=== PATIENT | female | born 1940 | race Caucasian/White ===

== ENCOUNTER 2019-11-19 15:16 | Inpatient (IN) | payer MEDICARE, BC, SELFPAY ==
[2019-11-19] VITALS (42 sets, daily range): BP systolic 125–182; BP diastolic 63–108; PULSE 79–90; RESP 11–31; TEMP 36.6–36.7; O2SAT 90–100; BMI 34.9
--- NOTE | 2019-11-19 15:25 | CT_ITS ---
WS: [id number] CT HEAD NONCONTRAST HISTORY: POSS CVA. LEFT SIDED FACIAL DROOP. TECHNIQUE: Contiguous axial imaging performed through the brain in 2.5 mm imaging. Bone and soft tiss ue windows. Sagittal and coronal reformats reviewed. All CT scans at [facility] use at le ast one of these dose optimization techniques: automated exposure control; mA and/or kV adjustment pe r patient size (includes targeted exams where dose is matched to clinical indication); or iterative r econstruction. DLP: 835.77 mGy-cm. COMPARISON: None available. No acute intracranial hemorrhage, midline shift or mass effect. Mild atrophy and numerous small infarcts and prior microvascular ischemia. LEFT centrum semiovale keesha or lacunar infarct. Areas of decreased attenuation adjacent to the thalami and within the basal gangl ia. No focal area of sulcal effacement. Ventricles: Normal size with no hydrocephalus. Mild atherosclerotic plaque intracranial carotid arteries. Paranasal sinuses: As visualized are clear. Mastoid air cells: Well pneumatized. Calvarium and scalp: Skull is intact with no soft tissue edema or swelling. Notified Michael Hooper DO at 11/19/2019 3:[address]/CT head wo con* [id number] IMPRESSION: 1. No acute intracranial hemorrhage or edema. 2. Cerebral atrophy with prior lacunar infarcts in chronic ischemic changes.
--- NOTE | 2019-11-19 15:25 | ECG_ITS ---
[facility] ED Test Date: 2019-11-19 Pat Name: Arianna Rodriguez Department: Room: Gender: Female Help Desk Intern: : 1940 Requested By: Michael Murillo Order Number: [id number] Lorena MD: Roxana Boone M.D. 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 [email or web address] campusParsley Energy/store/[id number] f
--- NOTE | 2019-11-19 15:38 | CTR_ITS ---
PROCEDURE INFORMATION: Exam: CT Angiography Head With Contrast Exam date and time: 11/19/2019 4:13 PM Age: 79 years old Clinical indication: Other: Right side facial droop and arm weakness; Additional info: Acute CVA TECHNIQUE: Imaging protocol: Computed tomography angiography of the head with intravenous contrast. 3D rendering: MIP and/or 3D reconstructed images were created by the technologist. Radiation optimization: All CT scans at this facility use at least one of these dose optimization techniques: automated exposure control; mA and/or kV adjustment per patient size (includes targeted exams where dose is matched to clinical indication); or iterative reconstruction. Contrast material: VISI 320; Contrast volume: 95 ml; Contrast route: INTRAVENOUS (IV); COMPARISON: CT head wo con* [id number] 11/19/2019 3:11 PM RADIATION DOSE METRICS: Total DLP (mGy-cm): 2483.88 FINDINGS: Anterior cerebral arteries: No occlusion or significant stenosis. No aneurysm. Right internal carotid artery: Intracranial segment is patent with no significant stenosis or occlusion. No aneurysm. Right middle cerebral artery: No occlusion or significant stenosis. No aneurysm. Right posterior cerebral artery: No occlusion or significant stenosis. No aneurysm. Right vertebral artery: No occlusion or significant stenosis. No aneurysm. Left internal carotid artery: The left ICA is occluded at the skull base. There is some retrograde contrast opacification of the left intracranial ICA. Left middle cerebral artery: The left middle cerebral artery is filling via collateral flow. Left posterior cerebral artery: No occlusion or significant stenosis. No aneurysm. Left vertebral artery: No occlusion or significant stenosis. No aneurysm. Basilar artery: No occlusion or significant stenosis. No aneurysm. Other vasculature: There is a small 2.8 mm anterior communicating artery aneurysm which is best seen on series 2, image 443. IMPRESSION: 1. 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 2. Left MCA fills via collateral flow. 3. 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 PROCEDURE INFORMATION: Exam: CT Angiography Neck With Contrast Exam date and time: 11/19/2019 4:13 PM Age: 79 years old Clinical indication: Other: Right side facial droop and arm weakness; Additional info: Acute CVA TECHNIQUE: Imaging protocol: Computed tomography angiography of the neck with intravenous contrast. 3D rendering: MIP and/or 3D reconstructed images were created by the technologist. Radiation optimization: All CT scans at this facility use at least one of these dose optimization techniques: automated exposure control; mA and/or kV adjustment per patient size (includes targeted exams where dose is matched to clinical indication); or iterative reconstruction. Contrast material: VISI 320; Contrast volume: 95 ml; Contrast route: INTRAVENOUS (IV); COMPARISON: CT head wo con* [id number] 11/19/2019 3:11 PM RADIATION DOSE METRICS: Total DLP (mGy-cm): 2483.88 FINDINGS: Right common carotid artery: No stenosis. No dissection or occlusion. Right internal carotid artery: No stenosis of the extracranial segment. No dissection or occlusion. Right external carotid artery: No occlusion or stenosis of the origin. Right vertebral artery: No stenosis. No dissection or occlusion. Left common carotid artery: No stenosis. No dissection or occlusion. Left internal carotid artery: There is proximal left ICA occlusion due to apparent dissection. Left external carotid artery: No occlusion or stenosis of the origin. Left vertebral artery: No stenosis. No dissection or occlusion. CT/CT angio headneck* [id number] IMPRESSION: Left ICA occlusion. REFERENCES: NASCET CRITERIA. The degree of internal carotid artery stenosis is based on NASCET criteria. Normal is no stenosis. Mild is less than 50% stenosis. Moderate is 50-69% stenosis. Severe is 70% to 99% stenosis. Total occlusion is no detectable patent lumen. Radiation Dose CTDIVOL = (mGy): DLP = 2483.88~2483.88 (mGy-cm)
--- NOTE | 2019-11-19 15:39 | ED_ITS ---
HPI - Neuro Symptoms/Deficit General: Chief Complaint: Neuro Symptoms/Deficit Stated Complaint: R SIDE WEAKNESS Time Seen by Provider: 11/19/19 15:24 History of Present Illness: HPI Narrative: 79-year-old female presents emergency room with hemiparesis and a aphasia. Hemiparesis affects the right side. She lives at home with her . Is difficult to get a last known well time initially discussing with him he related to us that she woke up with the symptoms on further discussion he indicated that she had had symptoms a couple of days prior. And then the following day seemed well. Then she woke up with symptoms today. Discussing with him second time he related that she seemed fine initially and she woke up and then sometime after waking up began to have symptoms. States she initially got up and around 6 or 630 seemed fine and then later in the day he noted that she was not speaking well and could not move her right side properly. Stroke alert was called Dr. Soto was consulted see her note as well. Onset (ago): unknown (See above in HPI) Timing confirmed by: spouse Location: speech, dysarthria, right arm and right leg Severity: severe Quality: weak and numb Relieving factors: none Exacerbating factors: none Context: gradual onset On Anticoagulants: No Associated symptoms: Reports no associated symptoms Treatments Prior to Arrival: none Review of Systems General: Reports: ROS unobtainable due to medical condition PFSH ED PFSH: Medical History Chronic back pain Depression Diastolic CHF DM2 (diabetes mellitus, type 2) Hypertension Obesity Osteoarthritis (arthritis due to wear and tear of joints) Surgical History History of cataract surgery History of cholecystectomy History of tonsillectomy Family History Other Diabetes Social History Smoking and tobacco status: former smoker Alcohol intake: never NIH stroke score NIHSS: Level Of Consciousness - 1a: 2 Level Of Consciousness Questions - 1b: One Correct Level Of Consciousness Commands - 1c: One Correct Best Gaze - 2: Normal Visual Perry - 3: No Visual Loss Facial Palsy - 4: Partial Paralysis Motor Arm Right - 5: Effort Against Welsh Motor Arm Left - 5: No Drift Motor Leg Right - 6: No Drift Motor Leg Left - 6: Drift Limb Ataxia - 7: Present In Two Limbs Sensory - 8: Mild To Moderate Loss Best Language - 9: Mild/Moderate Aphasia Dysarthia - 10: Mild/Moderate Dysarthia Extinction And Inattention - 11: 1 Score: Total Score: 15 Physical Exam Const: COMMON NORMALS: no acute distress GENERAL APPEARANCE: cooperative and comfortable ORIENTATION/CONSCIOUSNESS: Yes awake HENMT: COMMON NORMALS: normocephalic, atraumatic, hearing grossly normal bilaterally, moist oral mucous membranes and oropharynx normal HEAD & SCALP: normocephalic and atraumatic Eye: COMMON NORMALS: Equal, round and reactive pupils present, EOMs intact bilaterally, conjunctivae normal and no scleral icterus CONJUNCTIVA: Yes conjunctivae normal PUPIL: Yes Equal, round and reactive pupils present Neck/C-Spine: COMMON NORMALS: full ROM, no lymphadenopathy, supple and no JVD Lymph: LYMPHATIC: no lymphadenopathy noted and no lymphedema noted Resp: COMMON NORMALS: normal respiratory effort, No retractions, No use of accessory muscles and clear to auscultation bilaterally AUSCULTATION: clear to auscultation bilaterally Cardio: COMMON NORMALS: no JVD, regular rate, regular rhythm and No murmurs present (Cardio) RATE: regular rate RHYTHM: regular rhythm GI: COMMON NORMALS: Soft to palpation and No hepatosplenomegaly present AUSCULTATION: Yes normoactive bowel sounds PALPATION: Yes Soft to palpation, No Tenderness to palpation present (GI), No Guarding due to palpation present (GI) and Yes No hepatosplenomegaly present Extremity: COMMON NORMALS: normal to inspection, capillary refill normal, no clubbing, cyanosis or edema, no calf tenderness and no pedal edema Neuro: OTHER: Right-sided weakness of the arm and leg leg seems to be more affected than the arm. Is also left-sided slight facial droop significant dysarthria and some mild aphasia. See NIH scoring. Skin: COMMON NORMALS: no rashes or lesions noted GENERAL SKIN EXAM: no rashes or lesions noted Course Vital Signs: Vital signs: Vital Signs Temperature 98.8 F 11/22/19 13:08 Pulse Rate 78 11/22/19 13:08 Respiratory Rate 18 11/22/19 13:08 Blood Pressure 141/83 11/22/19 13:08 Pulse Oximetry 95 11/22/19 13:08 MDM - Neuro Symptoms/Deficit MDM Narrative: Medical decision making narrative: Initially we thought the patient probably was outside the window of any kind of treatment. After discussion with the and further pressing him on a timeframe does appear she might of been a candidate for embolectomy but was outside the window of any kind of thrombolytic therapy. However CTA of the head and neck showed what appeared to be a carotid dissection she did have good collateral circulation there is loss of henson-white matter but no edema. After consultation with Dr. Soto when the result of the CTA of the head and neck was done decided to admit her here as she was not a candidate for any kind of embolectomy discussed Dr. Guzman. Patient be admitted here under stroke protocols. Lab Data: Labs: Lab Results 11/19/19 11/19/19 11/19/19 Range/Units 13:54 15:34 15:34 WBC 11.3 H (4.0-10.0) 10^3/ uL RBC 5.05 (4.1-5.3) 10^6/u L Hgb 12.9 (11.5-15.3) g/dL Hct 43.5 (37.0-47.0) % MCV 86.1 (81-99) fL MCH 25.5 L (28.0-34.0) pg MCHC 29.7 L (30.0-36.0) g/dL RDW 15.5 H (12.1-15.1) % Plt Count 320 (130-400) 10^3/c mm MPV 10.3 (7.4-10.4) fL Neut % (Auto) 69.1 % Lymph % (Auto) 18.9 % Richardson % (Auto) 9.9 % Eos % (Auto) 1.1 % Baso % (Auto) 0.6 % Neut # (Auto) 7.80 H (1.8-7.7) 10^3/u L Lymph # (Auto) 2.1 (0.8-4.8) 10^3/u L Richardson # (Auto) 1.1 H (0.2-0.9) 10^3/u L Eos # (Auto) 0.1 (0.0-0.8) 10^3/u L Baso # (Auto) 0.1 (0.0-0.1) 10^3/u L Nucleated RBC % (a uto) 0 % Nucleated RBCs # 0.0 /100WBC PT 13.50 H (10.5-13.3) SECO NDS INR 1.00 (0.8-1.2) APTT 27.7 (23.9-36.7) SECO NDS Sodium (136-145) mmol/L Potassium (3.5-5.1) mmol/L Chloride (98-107) mmol/L Carbon Dioxide (22-29) mmol/L Anion Gap (5-19) BUN (8-23) mg/dL Creatinine (0.5-0.9) mg/dL Glucose (65-115) mg/dL POC Glucose (70-110) mg/dL Calculated Osmolal ity (285-295) mOsm/k g Calcium (8.5-10.5) mg/dL Total Bilirubin (0.15-1.2) mg/dL AST (0-32) U/L ALT (0-33) U/L Alkaline Phosphata se (35-105) IU/L Total Protein (6.6-8.7) g/dL Albumin (3.5-5.2) g/dL Globulin (1.3-4.6) g/dL TSH 1.42 (0.27-4.20) uIU/ mL Urine Color (Yellow) Urine Appearance (CLEAR) Urine pH (5-7) Ur Specific Gravit y (1.005-1.030) Urine Protein (Negative) Urine Glucose (UA) (Normal) Urine Ketones (Negative) Urine Blood (Negative) Urine Nitrate (Negative) Urine Bilirubin (NEGATIVE) Urine Urobilinogen (Negative) mg/dL Ur Leukocyte Ailyn ase (Negative) Urine RBC (0-2) /hpf Urine WBC (0-5) /hpf Ur Squamous Epith Cells (0-5) Amorphous Sediment Urine Bacteria (NONE) Urine Opiates Scre en (Negative) ng/mL Ur Barbiturates Sc reen (Negative) ng/mL Ur Phencyclidine S crn (Negative) ng/mL Ur Amphetamines Sc reen (Negative) ng/mL U Benzodiazepines Scrn (Negative) ng/mL Urine Cocaine Scre en (Negative) ng/mL U Marijuana (THC) Screen (Negative) ng/mL 11/19/19 11/19/19 11/19/19 Range/Units 15:34 16:05 16:05 WBC (4.0-10.0) 10^3/ uL RBC (4.1-5.3) 10^6/u L Hgb (11.5-15.3) g/dL Hct (37.0-47.0) % MCV (81-99) fL MCH (28.0-34.0) pg MCHC (30.0-36.0) g/dL RDW (12.1-15.1) % Plt Count (130-400) 10^3/c mm MPV (7.4-10.4) fL Neut % (Auto) % Lymph % (Auto) % Richardson % (Auto) % Eos % (Auto) % Baso % (Auto) % Neut # (Auto) (1.8-7.7) 10^3/u L Lymph # (Auto) (0.8-4.8) 10^3/u L Richardson # (Auto) (0.2-0.9) 10^3/u L Eos # (Auto) (0.0-0.8) 10^3/u L Baso # (Auto) (0.0-0.1) 10^3/u L Nucleated RBC % (a uto) % Nucleated RBCs # /100WBC PT (10.5-13.3) SECO NDS INR (0.8-1.2) APTT (23.9-36.7) SECO NDS Sodium 138 (136-145) mmol/L Potassium 4.2 (3.5-5.1) mmol/L Chloride 103 (98-107) mmol/L Carbon Dioxide 22 (22-29) mmol/L Anion Gap 17.2 (5-19) BUN 17 (8-23) mg/dL Creatinine 0.9 (0.5-0.9) mg/dL Glucose 201 H (65-115) mg/dL POC Glucose (70-110) mg/dL Calculated Osmolal ity 288 (285-295) mOsm/k g Calcium 10.0 (8.5-10.5) mg/dL Total Bilirubin 0.2 (0.15-1.2) mg/dL AST 20 (0-32) U/L ALT 17 (0-33) U/L Alkaline Phosphata se 74 (35-105) IU/L Total Protein 7.2 (6.6-8.7) g/dL Albumin 4.3 (3.5-5.2) g/dL Globulin 2.9 (1.3-4.6) g/dL TSH (0.27-4.20) uIU/ mL Urine Color Yellow (Yellow) Urine Appearance Clear (CLEAR) Urine pH 5 (5-7) Ur Specific Gravit y 1.020 (1.005-1.030) Urine Protein Neg (Negative) Urine Glucose (UA) 4+ H (Normal) Urine Ketones Negative (Negative) Urine Blood Neg (Negative) Urine Nitrate Positive H (Negative) Urine Bilirubin Neg (NEGATIVE) Urine Urobilinogen Norm (Negative) mg/dL Ur Leukocyte Ailyn ase Negative (Negative) Urine RBC None (0-2) /hpf Urine WBC 0-4 H (0-5) /hpf Ur Squamous Epith Cells 0-4 H (0-5) Amorphous Sediment Not Reportable Urine Bacteria 3+ H (NONE) Urine Opiates Scre en Negative (Negative) ng/mL Ur Barbiturates Sc reen Negative (Negative) ng/mL Ur Phencyclidine S crn Negative (Negative) ng/mL Ur Amphetamines Sc reen Negative (Negative) ng/mL U Benzodiazepines Scrn Positive H (Negative) ng/mL Urine Cocaine Scre en Negative (Negative) ng/mL U Marijuana (THC) Screen Negative (Negative) ng/mL 11/19/19 Range/Units 16:11 WBC (4.0-10.0) 10^3/ uL RBC (4.1-5.3) 10^6/u L Hgb (11.5-15.3) g/dL Hct (37.0-47.0) % MCV (81-99) fL MCH (28.0-34.0) pg MCHC (30.0-36.0) g/dL RDW (12.1-15.1) % Plt Count (130-400) 10^3/c mm MPV (7.4-10.4) fL Neut % (Auto) % Lymph % (Auto) % Richardson % (Auto) % Eos % (Auto) % Baso % (Auto) % Neut # (Auto) (1.8-7.7) 10^3/u L Lymph # (Auto) (0.8-4.8) 10^3/u L Richardson # (Auto) (0.2-0.9) 10^3/u L Eos # (Auto) (0.0-0.8) 10^3/u L Baso # (Auto) (0.0-0.1) 10^3/u L Nucleated RBC % (a uto) % Nucleated RBCs # /100WBC PT (10.5-13.3) SECO NDS INR (0.8-1.2) APTT (23.9-36.7) SECO NDS Sodium (136-145) mmol/L Potassium (3.5-5.1) mmol/L Chloride (98-107) mmol/L Carbon Dioxide (22-29) mmol/L Anion Gap (5-19) BUN (8-23) mg/dL Creatinine (0.5-0.9) mg/dL Glucose (65-115) mg/dL POC Glucose 210 (70-110) mg/dL Calculated Osmolal ity (285-295) mOsm/k g Calcium (8.5-10.5) mg/dL Total Bilirubin (0.15-1.2) mg/dL AST (0-32) U/L ALT (0-33) U/L Alkaline Phosphata se (35-105) IU/L Total Protein (6.6-8.7) g/dL Albumin (3.5-5.2) g/dL Globulin (1.3-4.6) g/dL TSH (0.27-4.20) uIU/ mL Urine Color (Yellow) Urine Appearance (CLEAR) Urine pH (5-7) Ur Specific Gravit y (1.005-1.030) Urine Protein (Negative) Urine Glucose (UA) (Normal) Urine Ketones (Negative) Urine Blood (Negative) Urine Nitrate (Negative) Urine Bilirubin (NEGATIVE) Urine Urobilinogen (Negative) mg/dL Ur Leukocyte Ailyn ase (Negative) Urine RBC (0-2) /hpf Urine WBC (0-5) /hpf Ur Squamous Epith Cells (0-5) Amorphous Sediment Urine Bacteria (NONE) Urine Opiates Scre en (Negative) ng/mL Ur Barbiturates Sc reen (Negative) ng/mL Ur Phencyclidine S crn (Negative) ng/mL Ur Amphetamines Sc reen (Negative) ng/mL U Benzodiazepines Scrn (Negative) ng/mL Urine Cocaine Scre en (Negative) ng/mL U Marijuana (THC) Screen (Negative) ng/mL Discharge Plan Discharge Patient Disposition: Admitted As Inpatient Admit Provider: Viet Sosa Clinical Impression: CVA (cerebral vascular accident), Hypertension, Carotid artery dissection Condition: Stable Discharge Orders: Discharge Order (Routine); Ordered 11/22/19 Ordered By: Viet Sosa Discharge Diet: As Directed Discharge Activity: Increase activity as tolerated Interventions: ED Discharge Assessment Last Done: 11/19/19 18:58 ED Charges Last Done: 11/19/19 18:58 Discharge Date/Time: 11/19/19 21:03 Coding Level of Care Code ED Automatic Silk Screen Printer for Mayank Bentley
[2019-11-19 15:42] LABS: Basophils # 0.1 10^3/uL (0.0-0.1); Basophils % 0.6 %; Eosinophils # 0.1 10^3/uL (0.0-0.8); Eosinophils % 1.1 %; Hematocrit 43.5 % (37.0-47.0); Hemoglobin 12.9 g/dL (11.5-15.3); Lymphocytes # 2.1 10^3/uL (0.8-4.8); Lymphocytes % 18.9 %; Mean Corpuscular HGB Conc 29.7 g/dL (30.0-36.0); Mean Corpuscular Hemoglobin 25.5 pg (28.0-34.0); Mean Corpuscular Volume 86.1 fL (81-99); Mean Platelet Volume 10.3 fL (7.4-10.4); Monocytes # 1.1 10^3/uL (0.2-0.9); Monocytes % 9.9 %; Neutrophils % 69.1 %; Nucleated Red Blood Cells % 0 %; Platelet Count 320 10^3/cmm (130-400); Red Blood Count 5.05 10^6/uL (4.1-5.3); Red Cell Distribution Width 15.5 % (12.1-15.1); White Blood Count 11.3 10^3/uL (4.0-10.0)
--- NOTE | 2019-11-19 16:13 | PC.NURSE ---
Patient blood glucose is 210, nurse and doctor are aware.
[2019-11-19 16:16] LABS: Glucose Point of Care 210 mg/dL (70-110)
[2019-11-19 16:19] LABS: Partial Thromboplastin Time 27.7 SECONDS (23.9-36.7)
[2019-11-19 16:20] LABS: Alanine Aminotransferase 17 U/L (0-33); Albumin Level 4.3 g/dL (3.5-5.2); Alkaline Phosphatase 74 IU/L (35-105); Anion Gap 17.2 (5-19); Aspartate Amino Transferase 20 U/L (0-32); Blood Urea Nitrogen 17 mg/dL (8-23); Carbon Dioxide 22 mmol/L (22-29); Chloride 103 mmol/L (98-107); Globulin 2.9 g/dL (1.3-4.6); Glucose 201 mg/dL (65-115); Osmolality Calculated 288 mOsm/kg (285-295); Potassium 4.2 mmol/L (3.5-5.1); Sodium 138 mmol/L (136-145); Total Bilirubin 0.2 mg/dL (0.15-1.2); Total Protein 7.2 g/dL (6.6-8.7)
[2019-11-19 16:37] LABS: Blood Urine Neg (Negative); Glucose Urine UA 4+ (Normal); Ketones Urine Negative (Negative); Protein Urine Neg (Negative); Urine Appearance Clear (CLEAR); Urine Color Yellow (Yellow); pH Urine 5 (5-7)
[2019-11-19 16:38] LABS: Add Urine Microscopic? YES; Bilirubin Urine Neg (NEGATIVE); Leukocyte Esterase Urine Negative (Negative); Nitrate Urine Positive (Negative); Urobilinogen Urine Norm (Negative)
[2019-11-19] MEDS: iodixanol 320 mg/mL 100mL Btl IV (16:42)
[2019-11-19 16:45] LABS: Add Urine Culture? Yes; Amphetamines Screen Urine Negative (Negative); Bacteria Urine 3+; Barbiturates Screen Urine Negative (Negative); Benzodiazepines Screen Urine Positive (Negative); Cocaine Screen Urine Negative (Negative); Opiate Screen Urine Negative (Negative); PCP Screen Urine Negative (Negative); Squamous Epithelial Cell Urine 0-4 (0-5); THC Screen Urine Negative (Negative); WBC Urine 0-4 /hpf (0-5)
--- NOTE | 2019-11-19 16:48 | P.PNCC_ITS ---
Stroke Alert Activation ED Arrival Date: 11/19/19 ED Arrival Time: 15:16 ED Physican at Bedside: 15:25 Last Known Normal/at Baseline: 3-4 hours ago (9 hours) Other Last Known Well Infomation: I was called stat for stroke team for this 79-year-old woman who presented with right hemiparesis and aphasia. She is unable to provide a history because she has expressive a aphasia and her is a difficult historian. They have been for 50 years and they do not communicate a lot. She had some kind of a brief spell of dizziness or some kind of an odd feeling on Sunday but it was not bad enough that she wanted to seek medical care. Yesterday she was fine. This morning she got up at 6:30 while he was making breakfast, walked from the bedroom to her chair and sat down. She looked normal and she acted in a normal way. They had breakfast together while watching the news and then sat together, she and her chair, and watched television through the day. This afternoon he discovered that she could not speak and she was not moving her right side properly. She arrived in our emergency department not long after 3 PM and I came directly to the emergency room and saw her just as her CAT scan was completed. I performed an NIH stroke scale with Dr. Hooper and performed an NIH stroke scale and looked at her CT of the head. She has loss of henson-white differentiation but no edema. She had 1 small region in the posterior aspect of the left middle cerebral artery distribution that looks like it might be old. Stat CT angiogram was done and shows left carotid occlusion. She has collateral flow to the left middle cerebral artery. I recommended consult with the [facility] stroke team to evaluate the patient for left carotid embolectomy. Stroke Alert Activated by: [facility] Stroke Alert Activation Time: 15:10 Stroke MD @ Bedside Time: 15:25 NIH Stroke Scale Time: 15:25 NIH stroke score NIHSS: Level Of Consciousness - 1a: 0 Level Of Consciousness Questions - 1b: One Correct Level Of Consciousness Commands - 1c: One Correct Best Gaze - 2: Normal Visual Perry - 3: No Visual Loss Facial Palsy - 4: Partial Paralysis Motor Arm Right - 5: Effort Against Haigler Motor Arm Left - 5: No Drift Motor Leg Right - 6: Drift Motor Leg Left - 6: No Drift Limb Ataxia - 7: Present In One Limb Sensory - 8: Normal Best Language - 9: Severe Aphasia Dysarthia - 10: Mild/Moderate Dysarthia Extinction And Inattention - 11: 0 Score: Total Score: 11 Stroke Alert Data/Treatment Time to CT of Head: 15:16 CT Results Time: 15:25 CT Impression: Loss of henson-white differentiation left hemisphere Stroke Risk Factors: hypertension, obesity and diabetes mellitus tPA Contraindication: tPA Contraindication: Treatment not indcated tPA Admin Prior to Arrival: No Patient & Family Educated on: Cause of Stroke, Risk Factors and Treament Plan Other Information: Plan to consult [facility] stroke team/[facility] Critical Care Time Critical Care Time: 30 - 74 mins Coding Level of Care Code Acute Photographic Artist for Mayank Bentley
[2019-11-19] MEDS: cefTRIAXone 1,000 MG in sodium chloride 0.9% (plus) 50 ML 100 MG IV (17:51)
--- NOTE | 2019-11-19 18:05 | PM.HP ---
Providers/Chief Complaint Primary Care Provider: Justin Naqvi DO Chief Complaint: R SIDE WEAKNESS History of Present Illness Arianna Rodriguez is a 79 year old female who presented to the emergency department with slurred speech. Initial onset of symptoms is difficult to know. They may have been present when the patient awoke this morning. reports slurred speech, right upper extremity weakness, right facial droop. Patient denies any fall, headache, nausea, recent fever, COVID exposure. Rest of history is somewhat limited from the patient secondary to expressive aphasia but is able to fill in many gaps. Review of Systems General: Reports: 10 or more systems reviewed and unremarkable except in HPI and below Const: Denies: fever(s) or chills Eyes: Reports: other (Denies double vision) ENMT: Denies: throat pain Card: Denies: chest pain Resp: Denies: dyspnea GI: Denies: abdominal pain : Denies: flank pain or difficulty voiding Musc: Reports: muscle weakness; Denies: neck pain Skin/Breast: Denies: rash Neuro: Reports: weakness in extremities and Slurred speech present; Denies: headache(s) Psych: Denies: anxiety Endo: Denies: polyuria Kameron/Lymph: Denies: easy bruising All/Imm: Denies: urticaria Medications/Allergies Home Medications Medication Instructions Recorded Confirmed Last Taken Type aspirin 81 mg chewable tablet 81 mg PO DAILY 05/19/19 11/19/19 Unknown History benazepril 10 mg tablet See Rx Instructions .ROUTE .COMPLEX 05/19/19 11/19/19 Unknown History canagliflozin 100 mg tablet 300 mg PO DAILY 05/19/19 11/19/19 Unknown History exenatide 5 mcg SUBCUT BID 05/19/19 11/19/19 Unknown History fluoxetine 40 mg capsule 40 mg PO BID 05/19/19 11/19/19 Unknown History glucosamine HCl 1,500 mg tablet 1,500 mg PO DAILY 05/19/19 11/19/19 Unknown History insulin detemir U-100 100 unit/mL See Rx Instructions .ROUTE .COMPLEX 05/19/19 11/19/19 Unknown History subcutaneous solution multivitamin 1 tab PO QAM 05/19/19 11/19/19 Unknown History omega-3 250 vd-lbp-rwa-lutein 2.5 1 cap PO DAILY 05/19/19 11/19/19 Unknown History mg-zeaxanthin 0.5 mg capsule omega-3 fatty acids 1,000 mg 1,000 mg PO BID 05/19/19 11/19/19 Unknown History capsule isosorbide mononitrate 30 mg 30 mg PO QAM #90 tab 10/20/19 11/19/19 Unknown Rx tablet,extended release 24 hr atorvastatin [Lipitor] 20 mg PO QPM 11/19/19 11/19/19 Unknown History cyanocobalamin (vitamin B-12) 500 mcg PO DAILY 11/19/19 11/19/19 Unknown History [Vitamin B-12] insulin lispro [Humalog KwikPen See Rx Instructions .ROUTE .COMPLEX 11/19/19 11/19/19 Unknown History Insulin] metoprolol tartrate 12.5 mg PO BID 11/19/19 11/19/19 Unknown History Allergies Allergy/AdvReac Type Severity Reaction Status Date / Time Penicillins Allergy UNKNOWN Verified 11/19/19 17:17 Sulfa (Sulfonamide Allergy UNKNOWN Verified 11/19/19 17:17 Antibiotics) PFSH Acute PFSH: Medical History (Updated 11/19/19 @ 18:14 by Viet Sosa MD) Chronic back pain Depression Diastolic CHF DM2 (diabetes mellitus, type 2) Hypertension Obesity Osteoarthritis (arthritis due to wear and tear of joints) Surgical History (Updated 11/19/19 @ 18:09 by Viet Sosa MD) History of cataract surgery History of cholecystectomy History of tonsillectomy Family History (Updated 11/19/19 @ 18:09 by Viet Sosa MD) Other Diabetes Social History (Updated 11/19/19 @ 18:09 by Viet Sosa MD) Smoking and tobacco status: former smoker Alcohol intake: never Substance/Drug Use: never Vitals/I&O/Wt Last Vital Signs Temp 97.9 F 11/19/19 15:17 Pulse 80 11/19/19 17:52 Resp 14 11/19/19 17:52 BP 178/82 11/19/19 17:52 Pulse Ox 97 11/19/19 17:52 Weight last 48 hrs Weight 95.254 kg Physical Exam Narrative: EXAM NARRATIVE: General exam is a white female with slurred speech, who appears to understand what I am saying. Neurologic exam: Right facial droop. Right upper extremity weakness noted. NIH stroke scale, recent examined by neurology demonstrates a score of 11. I could not elicit a good gag reflex. She could initiate swallowing. She appears to be handling secretions. HEENT: Pupils equally round. Oropharynx clear. Neck is supple no lymphadenopathy or thyromegaly Cardiovascular regular rate and rhythm without murmur. No S3 or S4 Lungs clear no wheezing or crackles Abdomen is soft nontender with positive bowel sounds. Obese. No obvious organomegaly was deferred Extremities no cyanosis clubbing or edema, cap refill brisk Skin no rash Urinary Catheter Management^: Beard: Cath Placed During This Visit: yes Reason for Continuing Indwelling Catheter: Other Urinary Catheter Date of Insertion: 11/19/19 Urinary Catheter Time of Insertion: 16:05 Data : 11/19/19 15:34 11/19/19 15:34 Micro: Microbiology 11/19/19 15:34 Blood Culture - Preliminary Blood SPECIMEN COLLECTED 11/19/19 15:36 Blood Culture - Preliminary Blood SPECIMEN COLLECTED Other data: LFTs are within normal limits. Urinalysis 0-4 whites, no reds. Head CT no acute findings. CTA demonstrates left ICA occlusion, skull base with some collateral flow through the MCA. 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 Apparent dissection left ICA A&P Assessment and plan (1) CVA (cerebral vascular accident): Left hemispheric, secondary to left ICA occlusion with dissection and clot formation. Not candidate for thrombectomy or TPA. Initiate aspirin 325 mg daily Statin, high intensity PT/OT/ST Hydration Head of bed elevated at least 35 degrees Permissive hypertension, trying to keep systolic blood pressure 160-180 considering left internal carotid artery dissection at least for the next 24 hours Consider MRI/MRA as outpatient Check echocardiogram Telemetry Status: Acute (2) Carotid artery dissection: See notation above Status: Acute (3) Hypertension: Continue patient's metoprolol to prevent beta-gianna withdrawal if she is able to swallow. If blood pressure becomes an issue with significant hypertension initiate nicardipine Status: Acute Additional A&P Information Type 2 diabetes. Mild sliding scale insulin. Try to avoid hypoglycemia. Hyperlipidemia, continue statin Depression Multiple other medical problems as noted in her past medical history. Full code Lovenox for DVT prophylaxis Attestations Medical Necessity Statement*: Will need greater than 2 midnight stay for evaluation and treatment with supportive care secondary to CVA. Time Spent in Patient Care: Greater than 35 minutes Critical Care Time: 46 minutes spent in ICU care at bedside reviewing history, ancillary studies, interviewing the patient. Patient with significant risk for deterioration secondary to acute CVA with left internal carotid dissection and thrombosis. May require nicardipine IV titrated for blood pressure. Coding Level of Care Code Acute Water Mangle Tender for Mayank Valverded Diagnoses CVA (cerebral vascular accident) I63.9 Carotid artery dissection I77.71 Hypertension I10
[2019-11-19] MEDS: labetalol 5 mg/mL SDV 20mL IVP (18:13)
[2019-11-19 22:02] LABS: Glucose Point of Care 187 mg/dL (70-110)
[2019-11-19 22:04] LABS: Thyroid Stimulating Hormone 1.42 uIU/mL (0.27-4.20)
[2019-11-19] MEDS: sodium chloride 0.9% 1,000 ML 100 ML IV (22:31)
[2019-11-20] VITALS (77 sets, daily range): BP systolic 114–171; BP diastolic 67–112; PULSE 48–109; RESP 13–32; TEMP 36.5–37.2; O2SAT 80–99
[2019-11-20 04:21] LABS: Estmated Average Glucose 154
[2019-11-20 04:47] LABS: Chol HDL Ratio 2.63 mg/dL (0.0-4.40); Cholesterol 121 mg/dL (0-200); HDL Cholesterol 46 mg/dL (60-100); LDL Cholesterol Calculated 55 mg/dL (50-129); Triglycerides 100 mg/dL (0-150)
--- NOTE | 2019-11-20 06:00 | USCV_ITS ---
Arianna Rodriguez Age: 79 Gender: F : 1940 Exam Date: 11/20/2019 06:09 Ordering Phys: Michael Hooper DO Technologist: Rand Victoria Exam Location: [facility] – [place] Indication: CHF BP: 148 / 79 HR: 90 Rhythm: Sinus Technical Quality: Adequate MEASUREMENTS (Male / Female) Normal Values 2D ECHO LV Diastolic Diameter PLAX 3.7 cm 4.2 - 5.9 / 3.9 - 5.3 cm LV Systolic Diameter PLAX 2.0 cm LV Chamber Size 2.8 cm IVS Diastolic Thickness 1.0 cm 0.6 - 1.0 / 0.6 - 0.9 cm IVS Systolic Thickness 1.3 cm LVPW Diastolic Thickness 1.1 cm 0.6 - 1.0 / 0.6 - 0.9 cm LVPW Systolic Thickness 1.4 cm RV Chamber Size 2.4 cm LVOT Diameter 2.0 cm LV Ejection Fraction 2D Teich 79.2 % LV Ejection Fraction MOD 2C 55.0 % LV Ejection Fraction 2C AL 55.5 % LA Diameter 3.6 cm LA Width 3.0 cm LA Height 4.0 cm RA Width 2.5 cm RA Height 3.0 cm Aorta at Sinotubular Diameter 2.4 cm M-MODE LV Diastolic Diameter MM 5.0 cm 4.2 - 5.9 / 3.9 - 5.3 cm LV Systolic Diameter MM 2.5 cm LV Ejection Fraction MM Teich 80.7 % IVS Diastolic Thickness MM 1.2 cm 0.6 - 1.0 / 0.6 - 0.9 cm IVS Systolic Thickness MM 1.7 cm LVPW Diastolic Thickness MM 1.4 cm 0.6 - 1.0 / 0.6 - 0.9 cm LVPW Systolic Thickness MM 1.6 cm RV Diastolic Diameter MM 1.0 cm Aortic Annulus Diameter 2.9 cm LA Ao Ratio MM 1.2 MV E Point Septal Separation 0.5 cm DOPPLER AV Peak Velocity 165.0 cm/s LVOT Peak Velocity 111.0 cm/s AV Area Cont Eq vti 2.2 cm squared AV Area Cont Eq pk 2.1 cm squared MV Area PHT 5.4 cm squared Mitral E to A Ratio 0.7 MV E' Velocity 9.0 cm/s Mitral E to MV E' Ratio 10.3 Mitral E to LV E' Lateral Ratio 10.5 Mitral E to LV E' Septal Ratio 10.0 TR Peak Velocity 169.6 cm/s TR Peak Gradient 11.5 mmHg TR Mean Velocity 144.0 cm/s TR Mean Gradient 8.4 mmHg TR Velocity Time Integral 43.2 cm TV Peak E Velocity 70.0 cm/s Right Atrial Pressure 3.0 mmHg Pulmonary Artery Systolic Pressu 14.5 mmHg PV Peak Velocity 115.0 cm/s RV Acceleration Time 0.2 s RV Ejection Time 0.3 s RV AcT/ET 0.5 FINDINGS Left Ventricle Normal left ventricular cavity size. Normal left ventricular systolic function. No regional wall motion abnormalities. Left ventricular ejection fraction is estimated at 65 %. Grade I/IV diastolic dysfunction (abnormal relaxation filling pattern), normal to mildly elevated filling pressures. Right Ventricle The right ventricle is normal in size and function. Right Atrium The right atrium is normal in size. Left Atrium The left atrium is normal in size. Mitral Valve Structurally normal mitral valve without significant stenosis or prolapse. There is no mitral regurgitation. Aortic Valve Aortic valve sclerosis without stenosis or regurgitation. Tricuspid Valve Structurally normal tricuspid valve without significant stenosis or regurgitation. Pulmonary artery systolic pressure is normal. Pulmonic Valve Structurally normal pulmonic valve without significant stenosis. There is no pulmonic regurgitation. Pericardium Normal pericardium without effusion. Aorta Normal ascending aorta dimension. CONCLUSIONS 1-Normal left ventricular cavity size. Normal left ventricular systolic function. No regional wall motion abnormalities. Left ventricular ejection fraction is estimated at 65 %. Grade I/IV diastolic dysfunction (abnormal relaxation filling pattern), normal to mildly elevated filling pressures. 2-No significant valve abnormalities. 3-There is no pericardial effusion. 4-Pulmonary artery systolic pressure is within normal limits. 5-Right atrial pressure is around 5 mm of mercury. 6-No significant change since the prior echocardiogram study of 07/13/2015. Iman Reyes MD (Electronically Signed) Final Date: 20 November 2019 17:50 S
--- NOTE | 2019-11-20 07:24 | PM.PN ---
Subjective Subjective: Interval history: Arianna reports she feels okay. She believes she is doing better. She did not go on any nicardipine last night. Medications: Reviewed: Yes Vitals/I&O/Wt Last Vital Signs Temp 98.9 F 11/20/19 04:00 Pulse 95 11/20/19 03:55 Resp 21 H 11/20/19 03:55 BP 146/67 11/20/19 02:30 Pulse Ox 91 11/20/19 03:55 11/19/19 11/20/19 11/20/19 22:59 06:59 14:59 Intake Total 50 / 50 0 / 50 Output Total 800 / 800 600 / 1400 Balance -750 / -750 -600 / -1350 Weight last 48 hrs Weight 95.254 kg Physical Exam Narrative: EXAM NARRATIVE: General exam no apparent distress Cardiovascular regular rate and rhythm without murmur Lungs clear Abdomen is soft with positive bowel sounds Extremities no cyanosis clubbing or edema Neurologic: Right upper extremity weakness is noted. This appears less than yesterday. No obvious visual field defects. Right facial droop is still present. She appears to initiate swallowing much better than yesterday. Urinary Catheter Management^: Beard: Cath Placed During This Visit: yes Reason for Continuing Indwelling Catheter: Other Urinary Catheter Date of Insertion: 11/19/19 Urinary Catheter Time of Insertion: 16:05 Data : 11/19/19 15:34 11/19/19 15:34 Micro: Microbiology 11/19/19 15:34 Blood Culture - Preliminary Blood SPECIMEN COLLECTED 11/19/19 15:36 Blood Culture - Preliminary Blood SPECIMEN COLLECTED A&P Assessment and plan (1) CVA (cerebral vascular accident): Left hemispheric, secondary to left ICA occlusion with dissection and clot formation. Not candidate for thrombectomy or TPA. Continue aspirin, high intensity statin PT/OT/ST Continue hydration Head of bed elevated at least 35 degrees Permissive hypertension, trying to keep systolic blood pressure 160-180 considering left internal carotid artery dissection at least for the next 24 hours. She has not required nicardipine. Will discontinue this. Consider MRI/MRA as outpatient Await echocardiogram Telemetry Likely transfer to regular floor today with telemetry Status: Acute (2) Carotid artery dissection: See notation above Status: Acute (3) Hypertension: Continue patient's metoprolol to prevent beta-gianna withdrawal if she is able to swallow. Holding all other antihypertensives Status: Acute Additional A&P Information Type 2 diabetes. Mild sliding scale insulin. Try to avoid hypoglycemia. Hyperlipidemia, continue statin Depression Multiple other medical problems as noted in her past medical history. Full code Lovenox for DVT prophylaxis Attestations Medical Necessity Statement*: Needs continued hospital stay for close monitoring status post CVA. Coding Level of Care Code Acute Abrasive Coating Machine Operator for Mayank Bentley Diagnoses CVA (cerebral vascular accident) I63.9 Carotid artery dissection I77.71 Hypertension I10
[2019-11-20 07:34] LABS: Glucose Point of Care 190 mg/dL (70-110)
[2019-11-20 08:21] LABS: Anion Gap 18.4 (5-19); Blood Urea Nitrogen 16 mg/dL (8-23); Calcium 9.4 mg/dL (8.5-10.5); Carbon Dioxide 20 mmol/L (22-29); Chloride 105 mmol/L (98-107); Glucose 203 mg/dL (65-115); Osmolality Calculated 290 mOsm/kg (285-295); Potassium 4.4 mmol/L (3.5-5.1); Sodium 139 mmol/L (136-145)
[2019-11-20] MEDS: sodium chloride 0.9% 1,000 ML 100 ML IV ×2 (08:59→18:07)
[2019-11-20] MEDS: enoxaparin 40 mg/0.4 mL Syringe SUBCUT (09:01)
[2019-11-20] MEDS: metoprolol tartrate 25 mg Tablet 12.5 MG PO (10:05)
[2019-11-20] MEDS: aspirin 325 mg Tablet PO (10:05)
[2019-11-20] MEDS: fluoxetine 20 mg Capsule 40 MG PO (10:05)
[2019-11-20] MEDS: atorvastatin 40 mg Tablet PO (10:05)
--- NOTE | 2019-11-20 10:08 | PC.NURSE ---
PO Meds Morning PO medications administered with ST eval. Patient still NPO per NDS.
[2019-11-20 11:30] LABS: Glucose Point of Care 249 mg/dL (70-110)
--- NOTE | 2019-11-20 13:21 | PC.NURSE ---
report called report to [facility] floor nurse, Alejandra. She is taking report for VITO Jaramillo. No questions. Attempted to call pt's without success. Will attempt again later.
--- NOTE | 2019-11-20 14:20 | PC.NURSE ---
transferred 259-1 Patient transferred to 259-1 via wheelchair by this nurse. Belongings with patient. Bedside report given to VITO Jaramillo. NIHSS at bedside. Patient's , Ed, called and given update.
[2019-11-20 16:55] LABS: Glucose Point of Care 259 mg/dL (70-110)
--- NOTE | 2019-11-20 17:10 | PC.SLP ---
Received information that the patient had difficulty with nectar thick liquids at lunch. However, nursing reported that she was drinking very quickly and taking large bites. When she was told to take small bites and drink slower, her difficulty ceased. I will take her to honey thick liquids since she appears to be somewhat impulsive and recheck the patient on 11/20 to assess her ability to tolerate nectar thick or thin liquids.
[2019-11-20 21:33] LABS: Glucose Point of Care 198 mg/dL (70-110)
[2019-11-21] VITALS (7 sets, daily range): BP systolic 142–172; BP diastolic 80–90; PULSE 79–101; RESP 17–18; TEMP 36.6–37.7; O2SAT 94–96
[2019-11-21] MEDS: sodium chloride 0.9% 1,000 ML 100 ML IV ×2 (04:11→18:14)
[2019-11-21] MEDS: enoxaparin 40 mg/0.4 mL Syringe SUBCUT (06:32)
[2019-11-21 07:38] LABS: Glucose Point of Care 198 mg/dL (70-110)
[2019-11-21] MEDS: fluoxetine 20 mg Capsule 40 MG PO ×2 (09:19→18:12)
[2019-11-21] MEDS: metoprolol tartrate 25 mg Tablet 12.5 MG PO ×2 (09:19→18:12)
[2019-11-21] MEDS: atorvastatin 40 mg Tablet PO (09:19)
[2019-11-21] MEDS: aspirin 325 mg Tablet PO (09:19)
--- NOTE | 2019-11-21 09:28 | PC.CHAP ---
Pastoral Care Encounter/Spiritual Assessment Type of Contact [] Declined director of agronomy visit [] Patient/Family/Request visit [] Outpatient visit [] Follow-up visit [] Physician referral [] Code/Alert [x] Routine visit [] Staff referral [] Actively dying [] Patient sleeping [] Family support [] [] Out of room [] Palliative care [] [] Receiving care in room [] Pre-surgical visit [] Trauma [] Long length of stay [] ICU visit [] Other: Relational/Emotional Strength [] Patient feels connected with others/family/visitors/staff [] Distress [] Loneliness/isolation [] Abandonment Spirituality of Patient [] Person of Velvet [] Attends Faith of their Velvet [] Believes in Prayer [] Reads Bible or Druze materials [] There are Spiritual issues to be addressed Cask Maker Interventions [x] Prayer [x] Active listening [x] Non-anxious presence [x] Spiritual/emotional support [] Crisis/trauma care [] Spiritual counseling [] Bereavement support [] Provided bereavement packet [] Provided Bible/devotional materials [] Provided toy/stuffed animal, coloring book to patient or family member [] Provided Communion [] Anointing/[place] [] Salvation [x] Completed spiritual assessment [] Other: Impact on Illness or Injury [] Angry [] Fearful [] Anxious [] Often cries [] Exhaustion [] Unable to work [] Unable to attend orthodox [] Unable to walk/stand [] Unable to read [] Unable to drive [] Unable to eat/drink [] Unable to sleep [] Unable to be with family [] Patient intubated [] Other: Summary Patient feeling better. transferred from ICU. Cask Maker has visited from ER-ICU now 2nd floor. Time spent with patient 20 min
--- NOTE | 2019-11-21 10:00 | P.PN_ITS ---
Subjective Subjective: Interval history: Arianna reports she is breathing okay. She aspirated yesterday. No chest discomfort. Medications: Reviewed: Yes Vitals/I&O/Wt Last Vital Signs Temp 100 F H 11/21/19 07:27 Pulse 101 H 11/21/19 07:27 Resp 18 11/21/19 07:27 BP 149/90 11/21/19 07:27 Pulse Ox 95 11/21/19 07:27 11/20/19 11/21/19 11/21/19 22:59 06:59 14:59 Intake Total 1393.333 / 2633.333 1000 / 3633.333 120 / 120 Balance 1393.333 / 2133.333 1000 / 3133.333 120 / 120 Weight last 48 hrs Weight 95.254 kg Physical Exam Narrative: EXAM NARRATIVE: General exam no apparent distress Cardiovascular regular rate and rhythm without murmur Lungs clear Abdomen is soft with positive bowel sounds Extremities no cyanosis clubbing or edema Neurologic: Right upper extremity weakness is noted. Slurred speech is noted. No obvious visual field defects. Right facial droop is still present. No overall change from yesterday. Urinary Catheter Management^: Beard: Cath Placed During This Visit: yes Reason for Continuing Indwelling Catheter: Accurate Measurement of Urinary Output in Critically Ill Patients Urinary Catheter Date of Insertion: 11/19/19 Urinary Catheter Time of Insertion: 16:05 Data : 11/19/19 15:34 11/20/19 07:50 Micro: Microbiology 11/19/19 16:05 Urine Culture - Final Urine,Clean Catch Citrobacter Freundii Complex 11/19/19 15:36 Blood Culture - Preliminary Blood NEGATIVE TO DATE 11/19/19 15:34 Blood Culture - Preliminary Blood NEGATIVE TO DATE A&P Assessment and plan (1) CVA (cerebral vascular accident): Left hemispheric, secondary to left ICA occlusion with dissection and clot formation. Not candidate for thrombectomy or TPA. Continue aspirin, high intensity statin PT/OT/ST Decrease hydration Head of bed elevated at least 35 degrees Permissive hypertension, trying to keep systolic blood pressure 160-180 initially. Likely reinitiate LAURENCE inhibitor tomorrow Consider MRI/MRA as outpatient Echocardiogram has been performed, demonstrates no thrombus Telemetry demonstrates no atrial fibrillation Status: Acute (2) Carotid artery dissection: See notation above Status: Acute (3) Hypertension: Continue beta-gianna Consider restarting LAURENCE inhibitor tomorrow, lower dose Status: Acute Additional A&P Information UTI, initiate Rocephin. Discontinue Beard. type 2 diabetes. Mild sliding scale insulin. Try to avoid hypoglycemia. Hyperlipidemia, continue statin Depression Multiple other medical problems as noted in her past medical history. Full code Lovenox for DVT prophylaxis Reduce fluids May need correction facility placement. Attestations Medical Necessity Statement*: Stay for close monitoring following CVA. Coding Level of Care Code Acute Refractory Furnace Designer for Mayank Bentley Diagnoses CVA (cerebral vascular accident) I63.9 Carotid artery dissection I77.71 Hypertension I10
[2019-11-21 11:04] LABS: Glucose Point of Care 268 mg/dL (70-110)
[2019-11-21 17:24] LABS: Glucose Point of Care 242 mg/dL (70-110)
[2019-11-21] MEDS: cefTRIAXone 1,000 MG in sodium chloride 0.9% (plus) 50 ML 100 MG IV (18:13)
[2019-11-21 21:19] LABS: Glucose Point of Care 232 mg/dL (70-110)
[2019-11-22] VITALS: BP 139/84; PULSE 82; RESP 18; TEMP 36.6; O2SAT 95
[2019-11-22 04:00] VITALS: BP 136/74; PULSE 79; RESP 18; TEMP 36.8; O2SAT 96
[2019-11-22 04:46] LABS: Basophils # 0.1 10^3/uL (0.0-0.1); Basophils % 0.5 %; Eosinophils # 0.2 10^3/uL (0.0-0.8); Eosinophils % 1.7 %; Hematocrit 36.7 % (37.0-47.0); Lymphocytes # 2.3 10^3/uL (0.8-4.8); Lymphocytes % 20.8 %; Mean Corpuscular Hemoglobin 26.3 pg (28.0-34.0); Mean Corpuscular Volume 87.8 fL (81-99); Mean Platelet Volume 10.9 fL (7.4-10.4); Monocytes # 1.2 10^3/uL (0.2-0.9); Monocytes % 11.3 %; Neutrophils # 7.09 10^3/uL (1.8-7.7); Neutrophils % 65.2 %; Nucleated Red Blood Cells % 0 %; Platelet Count 283 10^3/cmm (130-400); Red Blood Count 4.18 10^6/uL (4.1-5.3); Red Cell Distribution Width 15.7 % (12.1-15.1); White Blood Count 10.9 10^3/uL (4.0-10.0)
[2019-11-22 05:31] LABS: Anion Gap 14.8 (5-19); Blood Urea Nitrogen 12 mg/dL (8-23); Calcium 8.9 mg/dL (8.5-10.5); Carbon Dioxide 21 mmol/L (22-29); Chloride 107 mmol/L (98-107); Glucose 182 mg/dL (65-115); Osmolality Calculated 289 mOsm/kg (285-295); Potassium 3.8 mmol/L (3.5-5.1); Sodium 139 mmol/L (136-145)
[2019-11-22] MEDS: enoxaparin 40 mg/0.4 mL Syringe SUBCUT (06:34)
[2019-11-22 06:41] LABS: Glucose Point of Care 160 mg/dL (70-110)
[2019-11-22] MEDS: sodium chloride 0.9% 1,000 ML 50 ML IV (06:49)
[2019-11-22 08:00] VITALS: BP 175/83; PULSE 87; RESP 16; TEMP 36.5; O2SAT 96
[2019-11-22] MEDS: aspirin 325 mg Tablet PO (08:38)
[2019-11-22] MEDS: atorvastatin 40 mg Tablet PO (08:38)
[2019-11-22] MEDS: metoprolol tartrate 25 mg Tablet 12.5 MG PO (08:38)
[2019-11-22] MEDS: fluoxetine 20 mg Capsule 40 MG PO (08:38)
[2019-11-22] MEDS: lisinopril 10 mg Tablet PO (09:49)
--- NOTE | 2019-11-22 10:38 | PM.DCS ---
Discharge Providers Date of Admission: 11/19/19 17:46 Date of Discharge: November 22, 2019 Attending Provider at Admission: Viet Sosa MD Attending Provider at Discharge: Viet Sosa MD Primary Care Provider: Justin Naqvi DO Diagnoses at Discharge Discharge Diagnosis (1) CVA (cerebral vascular accident): Status: Acute Problem details: Doing well. Discharged on aspirin, statin to detention facility for therapy. (2) Carotid artery dissection: Status: Acute Problem details: Follow-up with neurology. Consideration of MRI and MRA on follow-up. (3) Hypertension: Status: Acute Reason for Visit Reason for Visit: R SIDE WEAKNESS Hospital Course Hospital Course: Arianna is a 79-year-old white female who presented to the hospital with a CVA, unknown time of onset of symptoms. Stroke alert was called. She was not a candidate for TPA or thrombectomy. Internal carotid artery, left thrombus with dissection was noted on CTA. She was admitted and provided supportive care as well as therapy. Aspirin and high-dose statin were started. Permissive hypertension with blood pressures 160-180 with consideration of dissection. During her hospital course she showed gradual improvement. On November 21 it was thought she could be discharged to skilled care. A urinary tract infection was also found, for which she will finish up 5 days of ciprofloxacin. Echocardiogram was performed which demonstrated normal EF, 1/4 diastolic dysfunction and no evidence of thrombus. She will follow-up with her primary care provider. She will also follow-up with neurology in 2 weeks and consideration of MRI MRA. Physical Exam Narrative: EXAM NARRATIVE: General exam no apparent distress Cardiovascular regular rate and rhythm, no murmur Lungs clear Abdomen is soft, positive bowel sounds Extremities no cyanosis clubbing or edema Neurologic: Weakness right upper extremity. Right facial droop is noted. Discoordination right upper extremity. Speech slurred. Urinary Catheter Management^: Beard: Cath Placed During This Visit: yes, but has since been removed by the nurse Reason for Continuing Indwelling Catheter: Accurate Measurement of Urinary Output in Critically Ill Patients Urinary Catheter Date of Insertion: 11/19/19 Urinary Catheter Time of Insertion: 16:05 Date Urinary Catheter Removed: 11/21/19 Time Urinary Catheter Discontinued: 19:00 Discharge Data Data Completed and Pending: Completed Studies During Hospitalization Category Date Time Status CT angio headneck * [id number] Urge nt Cat Scan 11/19/19 15:[address] head wo con* [id number] 0450 Urgent Cat Scan 11/19/19 15:25 Completed CV echo complete* [id number] Routine Ultrasound 11/20/19 06:00 Completed Pending at discharge Category Date Time Status Blood Culture Sta t Lab 11/19/19 15:34 Results Labs from last 24 hours 11/22/19 11/22/19 11/22/19 06:27 03:43 03:43 WBC 10.9 H RBC 4.18 Hgb 11.0 L Hct 36.7 L MCV 87.8 MCH 26.3 L MCHC 30.0 RDW 15.7 H Plt Count 283 MPV 10.9 H Neut % (Auto) 65.2 Lymph % (Auto) 20.8 [place] % (Auto) 11.3 Eos % (Auto) 1.7 Baso % (Auto) 0.5 Neut # (Auto) 7.09 Lymph # (Auto) 2.3 [place] # (Auto) 1.2 H Eos # (Auto) 0.2 Baso # (Auto) 0.1 Nucleated RBC % (a uto) 0 Nucleated RBCs # 0.0 Sodium 139 Potassium 3.8 Chloride 107 Carbon Dioxide 21 L Anion Gap 14.8 BUN 12 Creatinine 0.7 Glucose 182 H POC Glucose 160 Calculated Osmolal ity 289 Calcium 8.9 11/21/19 11/21/19 11/21/19 21:16 17:12 10:53 WBC RBC Hgb Hct MCV MCH MCHC RDW Plt Count MPV Neut % (Auto) Lymph % (Auto) [place] % (Auto) Eos % (Auto) Baso % (Auto) Neut # (Auto) Lymph # (Auto) [place] # (Auto) Eos # (Auto) Baso # (Auto) Nucleated RBC % (a uto) Nucleated RBCs # Sodium Potassium Chloride Carbon Dioxide Anion Gap BUN Creatinine Glucose POC Glucose 232 242 268 Calculated Osmolal ity Calcium Vitals: Last Vital Signs Temp 97.7 F 11/22/19 08:00 Pulse 87 11/22/19 08:00 Resp 16 11/22/19 08:00 BP 175/83 11/22/19 08:00 Pulse Ox 96 11/22/19 08:00 Discharge Plan Discharge Patient Disposition: Xfer SNF Condition: Stable Prescriptions: New aspirin 325 mg Tablet 325 mg PO DAILY Qty: 30 RF: 0 ciprofloxacin HCl [Cipro] 250 mg tablet 250 mg PO BID Qty: 10 RF: 0 atorvastatin 40 mg Tablet 40 mg PO DAILY Qty: 30 RF: 0 insulin aspart U-100 [Novolog U-100 Insulin aspart] 100 unit/mL Solution 0 unit SUBCUT WM&BEDTIME Qty: 10 RF: 0 Levemir U-100 Insulin 100 unit/mL solution 10 unit SUBCUT DAILY Qty: 10 RF: 0 Continued benazepril 10 mg tablet See Rx Instructions .ROUTE .COMPLEX RF: 0 [facility] 250-2.5-0.5 mg capsule 1 cap PO DAILY RF: 0 omega-3 fatty acids 1,000 mg capsule 1,000 mg PO BID RF: 0 fluoxetine 40 mg capsule 40 mg PO BID RF: 0 glucosamine HCl 1,500 mg tablet 1,500 mg PO DAILY RF: 0 multivitamin [Daily Multi-Vitamin] Tablet 1 tab PO QAM RF: 0 Vitamin B-12 500 mcg Tablet 500 mcg PO DAILY RF: 0 metoprolol tartrate 25 mg Tablet 12.5 mg PO BID RF: 0 Discontinued aspirin 81 mg tablet,chewable 81 mg PO DAILY RF: 0 Levemir U-100 Insulin 100 unit/mL solution See Rx Instructions .ROUTE .COMPLEX RF: 0 Byetta 5 mcg/dose (250 mcg/mL) 1.2 mL pen injector 5 mcg SUBCUT BID RF: 0 Invokana 100 mg tablet 300 mg PO DAILY RF: 0 isosorbide mononitrate 30 mg tablet extended release 24 hr 30 mg PO QAM Qty: 90 RF: 3 Lipitor 20 mg Tablet 20 mg PO QPM RF: 0 Humalog KwikPen Insulin 100 unit/mL Insulin Pen See Rx Instructions .ROUTE .COMPLEX RF: 0 Referrals: Charu Soto MD [Physician] - 2 weeks Justin Naqvi DO [Primary Care Provider] - 4-7 days Discharge Diet: As Directed Discharge Activity: Increase activity as tolerated Activity Restrictions/Additional Instructions: Diet is nectar thick liquids, dysphagia level 2, ground. Aspiration precautions. 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
--- NOTE | 2019-11-22 11:04 | DCPLANNER ---
Pg 2 of IM updated and reviewed with pt. No questions, copy provided.
[2019-11-22 11:55] LABS: Glucose Point of Care 314 mg/dL (70-110)
[2019-11-22 12:00] VITALS: BP 141/83; PULSE 78; RESP 18; TEMP 37.1; O2SAT 95
[2019-11-22 13:08] VITALS: BP 141/83; PULSE 78; RESP 18; TEMP 37.1; O2SAT 95
== END 2019-11-22 12:55 | disposition skilled nursing facility (03) | DRG 64 ==
LOC: ER 17:53 → MEDSURG 18:21 → ICU 18:33 → MEDSURG 11-20 13:58
PROVIDERS: Family Medicine; Admitting Provider Internal Medicine; PCP Internal Medicine; Visit Provider Internal Medicine
DX: I63.9 Cerebral infarction, unspecified (principal); I77.71 Dissection of carotid artery; I50.32 Chronic diastolic (congestive) heart failure; N39.0 Urinary tract infection, site not specified; I11.0 Hypertensive heart disease with heart failure; Z79.82 Long term (current) use of aspirin; G89.29 Other chronic pain; M54.9 Dorsalgia, unspecified; F32.9 Major depressive disorder, single episode, unspecified; E11.9 Type 2 diabetes mellitus without complications; M19.90 Unspecified osteoarthritis, unspecified site; Z87.891 Personal history of nicotine dependence; E78.5 Hyperlipidemia, unspecified
CPT/HCPCS: 12345; 36415; 36416; 51702; 70450; 70496; 70498; 80048; 80053; 80061; 80306; 81001; 81003; 82962; 83036; 84443; 85025; 85610; 85730; 87040; 87077; 87086; 87186; 92507; 92523; 92610; 93005; 93306; 96372; 96375; 97110; 97116; 97124; 97162; 97167; 97530; 97535; 99284; J0696; J1650; J1815; J3490; J7030; Q9967

== ENCOUNTER → 2019-12-24 10:50 | Outpatient (BNVA) | payer MEDICARE, BC, SELFPAY | PROVIDERS: PCP Internal Medicine; Visit Provider Nurse Practitioner | DX: I69.320 Aphasia following cerebral infarction (principal); Z87.891 Personal history of nicotine dependence | CPT/HCPCS: 99204 ==

== ENCOUNTER 2020-01-20 10:22 | Outpatient (RCR) | payer MEDICARE, BC, SELFPAY | END 2020-02-11 23:59 | disposition home or self-care (01) | LOC: SST 10:22 | PROVIDERS: PCP Internal Medicine; Referring Provider Internal Medicine; Visit Provider Internal Medicine | DX: I63.9 Cerebral infarction, unspecified (principal) | CPT/HCPCS: 92507; 92523 ==

== ENCOUNTER 2020-09-01 14:58 | Inpatient (IN) | payer MEDICARE, BC, SELFPAY ==
--- NOTE | 2020-09-01 15:23 | XR_ITS ---
WS: [id number] Portable AP upright chest, 09/01/2020 Clinical Data: sob Comparison: None. Findings: There is a patchy right upper lobe opacity which may represent acute pneumonia. Right lower lobe and left lung are clear. The heart is normal. The aortic arch and descending aorta show mild to rtuosity. XR/XR chest 1V portable [id number] Impression: Minimal patchy right upper lobe opacity which could represent acute pneumonia.
--- NOTE | 2020-09-01 15:25 | ED_ITS ---
HPI - SOB/Dyspnea General: Chief Complaint: Shortness of Breath/Dyspnea Stated Complaint: SOB, NAUSEA Time Seen by Provider: 09/01/20 15:19 History of Present Illness: HPI Narrative: 80-year-old female presents with some shortness of breath. Patient shortness of breath started yesterday and has gotten worse over the last day. Patient has had decreased appetite for the last 3 to 4 days. She has no report of fever. She does have an occasional cough. She does not have any chest pain. She had some nausea with vomiting upon arrival. Patient has been fully vaccinated for coronavirus. Associated symptoms: Deny abdominal pain, chest pain, fever(s) or palpitations Review of Systems Const: Reports: malaise; Denies: fever(s) or chills Eyes: Denies: change in vision ENMT: Denies: throat pain Card: Denies: chest pain or palpitations Resp: Reports: dyspnea and non-productive cough GI: Reports: other (Decreased appetite); Denies: abdominal pain : Denies: flank pain or difficulty voiding Skin/Breast: Denies: rash Neuro: Denies: headache(s) PFSH ED PFSH: Medical History Chronic back pain Depression Diastolic CHF DM2 (diabetes mellitus, type 2) Hypertension Obesity Osteoarthritis (arthritis due to wear and tear of joints) Surgical History History of cataract surgery History of cholecystectomy History of tonsillectomy Family History Other Diabetes Social History Smoking and tobacco status: former smoker Alcohol intake: never History of recent travel: No Physical Exam Const: COMMON NORMALS: patient oriented x3 and alert GENERAL APPEARANCE: ill appearing Chest: COMMONS NORMALS: normal palpation of entire chest wall Resp: COMMON NORMALS: normal respiratory effort and clear to auscultation bilaterally AUSCULTATION: clear to auscultation bilaterally Cardio: COMMON NORMALS: regular rate and regular rhythm RATE: regular rate RHYTHM: regular rhythm GI: COMMON NORMALS: Soft to palpation and non-tender PALPATION: Yes Soft to palpation Neuro: COMMON NORMALS: patient oriented x3 SENSORIUM/ORIENTATION: Yes alert Psych: COMMON NORMALS: mental status grossly normal Skin: COMMON NORMALS: no rashes or lesions noted GENERAL SKIN EXAM: no rashes or lesions noted Course Vital Signs: Vital signs: Vital Signs Pulse Rate 89 09/01/20 16:37 Respiratory Rate 22 H 09/01/20 16:37 Blood Pressure 179/82 09/01/20 15:53 Pulse Oximetry 96 09/01/20 16:37 MDM - SOB/Dyspnea MDM Narrative: Medical decision making narrative: Patient with pneumonia on x- ray. Patient with elevated white count. She will receive Rocephin doxycycline in the ER. Patient will be admitted to hospitalist for further management. Patient is requiring oxygen which she normally does not at home. Patient was admitted in stable condition Lab Data: Labs: Lab Results 09/01/20 09/01/20 09/01/20 Range/Units 15:39 15:56 15:56 WBC 22.0 H (4.0-10.0) 10^3/ uL RBC 4.51 (4.1-5.3) 10^6/u L Hgb 11.8 (11.5-15.3) g/dL Hct 39.2 (37.0-47.0) % MCV 86.9 (81-99) fL MCH 26.2 L (28.0-34.0) pg MCHC 30.1 (30.0-36.0) g/dL RDW 17.8 H (12.1-15.1) % Plt Count 320 (130-400) 10^3/c mm MPV 11.7 H (7.4-10.4) fL Neut % (Auto) 76.9 % Lymph % (Auto) 7.4 % [place] % (Auto) 14.1 % Eos % (Auto) 0.2 % Baso % (Auto) 0.4 % Neut # (Auto) 16.90 H (1.8-7.7) 10^3/u L Lymph # (Auto) 1.6 (0.8-4.8) 10^3/u L [place] # (Auto) 3.1 H (0.2-0.9) 10^3/u L Eos # (Auto) 0.1 (0.0-0.8) 10^3/u L Baso # (Auto) 0.1 (0.0-0.1) 10^3/u L Nucleated RBC % (a uto) 0 % Nucleated RBCs # 0.0 /100WBC Sodium 135 L (136-145) mmol/L Potassium 4.0 (3.5-5.1) mmol/L Chloride 99 (98-107) mmol/L Carbon Dioxide 25 (22-29) mmol/L Anion Gap 15.0 (5-19) BUN 18 (8-23) mg/dL Creatinine 0.8 (0.5-0.9) mg/dL GFR Calculation Not Reportable Glucose 156 H (65-115) mg/dL Calculated Osmolal ity 285 (285-295) mOsm/k g Lactic Acid 1.3 (0.5-2.2) mmol/L Calcium 8.9 (8.5-10.5) mg/dL Magnesium 1.8 (1.7-2.3) mg/dL Total Bilirubin 0.5 (0.15-1.2) mg/dL AST 13 (0-32) U/L ALT 16 (0-33) U/L Alkaline Phosphata se 96 (35-105) IU/L Total Protein 7.3 (6.6-8.7) g/dL Albumin 3.7 (3.5-5.2) g/dL Globulin 3.6 (1.3-4.6) g/dL Imaging Data^: CXR: Attestation: I personally reviewed and interpreted this imaging study as follows: My impression: Pneumonia Radiologist's impression: Findings: There is a patchy right upper lobe opacity which may represent acute pneumonia. Right lower lobe and left lung are clear. The heart is normal. The aortic arch and descending aorta show mild tortuosity. XR/XR chest 1V portable [id number] Impression: Minimal patchy right upper lobe opacity which could represent acute pneumonia. Discharge Plan Discharge Prescriptions: No Action acetaminophen 325 mg capsule 650 mg PO Q6H PRN (Reason: Pain) RF: 0 omega-3 fatty acids 1,000 mg capsule 1,000 mg PO DAILY@0900 RF: 0 fluoxetine 40 mg capsule 40 mg PO DAILY@0900 RF: 0 glucosamine HCl 1,500 mg tablet 750 mg PO DAILY@0900 RF: 0 multivitamin [Daily Multi-Vitamin] Tablet 1 tab PO DAILY@0900 RF: 0 metoprolol tartrate 25 mg Tablet 12.5 mg PO BID@0800,1999 RF: 0 Aspir-81 81 mg Tablet,Delayed Release (Dr/Ec) 81 mg PO DAILY@0900 RF: 0 atorvastatin 40 mg tablet 40 mg PO DAILY@2200 RF: 0 benazepril 10 mg tablet 20 mg PO DAILY@0900 RF: 0 isosorbide mononitrate 30 mg tablet extended release 24 hr 30 mg PO DAILY@0900 RF: 0 Humalog KwikPen Insulin 100 unit/mL insulin pen 35 unit SUBCUT TID@,12, RF: 0 bupropion HCl 150 mg tablet extended release 24 hr 150 mg PO DAILY@0900 RF: 0 Tresiba FlexTouch U-200 200 unit/mL (3 mL) insulin pen 120 unit SUBCUT BEDTIME@2199 RF: 0 Vitamin D3 1 tab PO DAILY@0900 RF: 0 zinc 1 tab PO DAILY@0900 RF: 0 [facility] 1 tab PO DAILY@0900 RF: 0 Coding Level of Care Code 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
--- NOTE | 2020-09-01 15:26 | XR_ITS ---
WS: [id number] KUB, AP portable, 09/01/2020 Clinical Data: vomiting Comparison: None. Findings: No abnormal intraabdominal masses or calcifications are seen. There is no dilatated small bowel or ev idence of obstruction. There is air in the small bowel and colon. There are clips in the right upper quadrant from a cholecy stectomy. There is a levoscoliosis. XR/XR KUB portable [id number] Impression: Generalized ileus.
[2020-09-01 15:50] LABS: Basophils # 0.1 10^3/uL (0.0-0.1); Basophils % 0.4 %; Eosinophils # 0.1 10^3/uL (0.0-0.8); Eosinophils % 0.2 %; Hematocrit 39.2 % (37.0-47.0); Hemoglobin 11.8 g/dL (11.5-15.3); Lymphocytes # 1.6 10^3/uL (0.8-4.8); Lymphocytes % 7.4 %; Mean Corpuscular HGB Conc 30.1 g/dL (30.0-36.0); Mean Corpuscular Hemoglobin 26.2 pg (28.0-34.0); Mean Corpuscular Volume 86.9 fL (81-99); Mean Platelet Volume 11.7 fL (7.4-10.4); Monocytes # 3.1 10^3/uL (0.2-0.9); Monocytes % 14.1 %; Neutrophils % 76.9 %; Nucleated Red Blood Cells % 0 %; Platelet Count 320 10^3/cmm (130-400); Red Blood Count 4.51 10^6/uL (4.1-5.3); Red Cell Distribution Width 17.8 % (12.1-15.1)
[2020-09-01 15:53] VITALS: BP 179/82; PULSE 90; RESP 29; O2SAT 96; BMI 37.3
[2020-09-01 16:25] LABS: Lactic Sepsis W/Reflex 1.3 mmol/L (0.5-2.2)
[2020-09-01] MEDS: ipratropium-albuterol 3 mL Neb INHALATION ×2 (16:25→21:45)
[2020-09-01 16:26] VITALS: PULSE 90; RESP 22; O2SAT 96
[2020-09-01 16:26] LABS: Alanine Aminotransferase 16 U/L (0-33); Albumin Level 3.7 g/dL (3.5-5.2); Alkaline Phosphatase 96 IU/L (35-105); Aspartate Amino Transferase 13 U/L (0-32); Blood Urea Nitrogen 18 mg/dL (8-23); Calcium 8.9 mg/dL (8.5-10.5); Carbon Dioxide 25 mmol/L (22-29); Chloride 99 mmol/L (98-107); Globulin 3.6 g/dL (1.3-4.6); Glucose 156 mg/dL (65-115); Magnesium 1.8 mg/dL (1.7-2.3); Osmolality Calculated 285 mOsm/kg (285-295); Sodium 135 mmol/L (136-145); Total Bilirubin 0.5 mg/dL (0.15-1.2); Total Protein 7.3 g/dL (6.6-8.7)
[2020-09-01 16:37] VITALS: PULSE 89; RESP 22; O2SAT 96
[2020-09-01] MEDS: sodium chloride 0.9% 500 ML 100 ML IV (17:24)
--- NOTE | 2020-09-01 18:08 | CTR_ITS ---
PROCEDURE INFORMATION: Exam: CT Chest Without Contrast; Diagnostic Exam date and time: 09/01/2020 6:26 PM Age: 80 years old Clinical indication: Shortness of breath; Additional info: Pna TECHNIQUE: Imaging protocol: Diagnostic computed tomography of the chest without contrast. Radiation optimization: All CT scans at this facility use at least one of these dose optimization techniques: automated exposure control; mA and/or kV adjustment per patient size (includes targeted exams where dose is matched to clinical indication); or iterative reconstruction. COMPARISON: CR XR chest 1V portable [id number] 09/01/2020 3:32 PM RADIATION DOSE METRICS: Total DLP (mGy-cm): 820.12 FINDINGS: Lungs: Right upper lobe posterior segment consolidation. Scattered ground-glass nodules throughout the anterior right upper lobe. Mild emphysema. Obstructing endobronchial material within the right upper lobe bronchus. Pleural spaces: Unremarkable. No pneumothorax. No pleural effusion. Heart: Unremarkable. No cardiomegaly. No pericardial effusion. Mediastinal space: Mild hiatal hernia. Aorta: Unremarkable. No aortic aneurysm. Lymph nodes: Unremarkable. No enlarged lymph nodes. Gallbladder and bile ducts: Cholecystectomy. Bones/joints: Thoracic spinal alignment is normal. Bones are demineralized. Compression fracture deformity at T12 age indeterminate. Soft tissues: Unremarkable. CT/CT chest wo con [id number] IMPRESSION: 1. Right upper lobe bronchopneumonia. 2. Recommend radiographic follow-up to resolution as there is obstructing endobronchial material. Radiation Dose CTDIVOL = (mGy): DLP = 820.12 (mGy-cm)
--- NOTE | 2020-09-01 18:28 | PM.HP ---
Providers/Chief Complaint Admitting Physician: Kevin Jacobs MD Primary Care Provider: Justin Naqvi DO Chief Complaint: SOB, NAUSEA History of Present Illness Arianna Rodriguez is a 80 year old female with past medical history of type 2 diabetes mellitus insulin-dependent, hypertension, diastolic heart failure, CVA who presented to the ER today. Patient was sent in by the nurse practitioner at [facility]. Patient states she has been having difficulty in breathing for last 3 days getting worse progressively. Today when she had gone to nurse practitioner for continuance of her insurance they found her to be having labored breathing so she was referred to the ER. Patient states she been having cough on and off for last 3 days with expectoration. Shortness of breath gets worse on ambulation. She denies of having any nausea, vomiting, dysuria, headache but complains of subjective fever fever. She has not had pneumonia in the past. She was vaccinated for COVID-19 in May. She did not have Covid infection since then. She denies of having any recent travels or sick contacts. Patient states she has been having uncontrolled diabetes with blood sugars ranging between 200-400 mostly in the 280s with some levels of 400. She states she takes a lot of insulin but still blood sugars are not controlled. Blood work in the ER showed a white count 22,000, hemoglobin of 11.8, sodium of 135, creatinine of 0.8, lactate of 1.3 with chest x-ray concerning for pneumonia and right upper lobe. Review of Systems General: Reports: 10 or more systems reviewed and unremarkable except in HPI and below Const: Denies: fever(s), chills, body aches, change in appetite, change in weight, malaise, night sweats, diaphoresis, change in sleep pattern, daytime sleepiness or snoring Eyes: Denies: change in vision, blurry vision, photophobia, eye discomfort or eye discharge ENMT: Denies: throat pain, enlarged tonsils, hoarseness, mouth pain, oral sores, dry mouth, tinnitus, nasal congestion or post nasal drip Card: Denies: chest pain, palpitations, irregular heart rhythm, edema, swelling of feet/ankles, lightheadedness, syncope, pre-syncope, dyspnea on exertion, orthopnea, leg pain with exertion or acrocyanosis Resp: Denies: dyspnea, productive cough, non-productive cough, wheezing, stridor, pain on inspiration, change in phlegm color, hemoptysis or chest congestion GI: Denies: abdominal pain, nausea, vomiting, hematemesis, coffee ground emesis, dysphagia, heartburn, diarrhea, constipation, bloating, GI cramping, change in bowel habits, pain on defecation, hematochezia or melena : Denies: flank pain, dysuria, urinary frequency, urinary urgency, urinary hesitancy, nocturia or hematuria Musc: Denies: neck pain, back pain, extremity pain, joint pain, joint swelling, joint redness, joint stiffness or limited range of motion Neuro: Denies: headache(s), numbness in extremities, weakness in extremities, sensory changes, lack of coordination, difficulty walking, frequent falls, dizziness, vertigo, confusion, Slurred speech present, difficulty communicating thoughts or seizure-like activity Psych: Denies: anxiety, depression, mood swings, panic attacks, hopelessness or irritability Endo: Denies: polyuria, polydipsia, tired all the time, cold intolerance, excessive sweating, flushing or heat intolerance [place]/Lymph: Denies: easy bruising or easy bleeding All/Imm: Denies: tongue swelling, facial swelling or acute wheezing Medications/Allergies Home Medications Medication Instructions Recorded Confirmed Last Taken Type fluoxetine 40 mg capsule 40 mg PO DAILY@89905/19/19 09/01/20 09/01/20 History glucosamine HCl 1,500 mg tablet 750 mg PO DAILY@89905/19/19 09/01/20 09/01/20 History multivitamin 1 tab PO DAILY@89905/19/19 09/01/20 09/01/20 History omega-3 fatty acids 1,000 mg 1,000 mg PO DAILY@89905/19/19 09/01/20 09/01/20 History capsule metoprolol tartrate 12.5 mg PO BID@11/19/19 09/01/20 09/01/20 History acetaminophen 325 mg capsule 650 mg PO Q6H PRN cap 12/24/19 09/01/20 Unknown History [facility] 1 tab PO DAILY@89909/01/20 09/01/20 09/01/20 History Vitamin D3 1 tab PO DAILY@89909/01/20 09/01/2009/01/21 History aspirin [Aspir-81] 81 mg PO DAILY@0909/01/20 09/01/20 09/01/20 History atorvastatin 40 mg PO DAILY@219909/01/20 09/01/20 08/31/20 History benazepril 20 mg PO DAILY@0900 09/01/20 09/01/20 09/01/20 History bupropion HCl 150 mg PO DAILY@0909/01/20 09/01/20 09/01/20 History insulin degludec [Tresiba 120 unit SUBCUT BEDTIME@219909/01/20 09/01/20 08/31/20 History FlexTouch U-200] insulin lispro [Humalog KwikPen 35 unit SUBCUT TID@09/01/20 09/01/20 09/01/20 History Insulin] isosorbide mononitrate 30 mg PO DAILY@0909/01/20 09/01/20 09/01/20 History zinc 1 tab PO DAILY@0909/01/20 09/01/20 09/01/20 History Allergies Allergy/AdvReac Type Severity Reaction Status Date / Time Penicillins Allergy UNKNOWN Verified 12/24/19 11:10 Sulfa (Sulfonamide Allergy UNKNOWN Verified 12/24/19 11:10 Antibiotics) PFSH Acute PFSH: Medical History (Updated 09/01/20 @ 18:33 by Kevin Jacobs MD) Chronic back pain Depression Diastolic CHF DM2 (diabetes mellitus, type 2) Hypertension Obesity Osteoarthritis (arthritis due to wear and tear of joints) Short of breath on exertion Tachyarrhythmia Surgical History History of cataract surgery History of cholecystectomy History of tonsillectomy Family History Other Diabetes Social History Smoking and tobacco status: former smoker Alcohol intake: never History of recent travel: No Vitals/I&O/Wt Last Vital Signs Pulse 89 09/01/20 16:37 Resp 22 H 09/01/20 16:37 BP 179/82 09/01/20 15:53 Pulse Ox 96 09/01/20 16:37 Weight last 48 hrs Weight 101.605 kg Physical Exam Narrative: EXAM NARRATIVE: General: No acute distress, AO x3, tired appearing, in distress because of difficulty in breathing, no use of accessory muscle, disheveled fluids HEENT: PERRLA, pupils bilaterally equal and reactive Chest: Normal vesicular breath sounds, bronchial breath sounds in right upper lobe and middle lobe, diffuse rhonchi, equal good air entry bilaterally CVS: S1-S2 regular, no murmurs, no tachycardia, no gallops, no rubs Abdomen: Soft, nontender, no organomegaly, bowel sounds present Neuro: No focal deficits, no facial deformity, AO x3, power 5/5 in all limbs Data : 09/01/20 15:39 09/01/20 15:56 A&P Assessment and plan (1) Shortness of breath: Status: Acute (2) Pneumonia: Status: Acute Qualifiers: Laterality: right Lung location: upper lobe of lung Pneumonia type: due to unspecified organism Qualified Code(s): J18.9 - Pneumonia, unspecified organism (3) Hypertension: Status: Acute (4) DM2 (diabetes mellitus, type 2): Status: Acute Additional A&P Information 71-year-old female past medical history type 2 diabetes mellitus, hypertension presented to the ER with difficulty in breathing and cough for last 3 days found to have pneumonia on chest x-ray. Shortness of breath: Secondary to pneumonia: Check sputum culture, blood culture, urine Legionella, procalcitonin, proBNP, urinalysis. For now start patient on ceftriaxone and azithromycin for community-acquired pneumonia. Will change antibiotics to de-escalate as per culture results. Oxygen supplementation keeping saturation over 90%. Tessalon Perles. DuoNebs every 6 hour, budesonide twice daily. Assessment of condition keeping saturation over 90%. Early ambulation. Last echocardiogram from 12/01/2019 shows an EF of 65% with grade 1 diastolic dysfunction with normal right ventricular pressures. -Hypertension: Continue home medication of Benzapril, Imdur, metoprolol. Goal blood pressure less than 140/90 mmHg. -Type 2 diabetes mellitus: Uncontrolled as per patient. Continue lispro 35 units 3 times daily premeals along with correctional insulin sliding scale. Lantus 50 units at bedtime. Check HbA1c. Continue chronic medication occluding atorvastatin, bupropion, fluoxetine. CODE STATUS: Patient states she would not want to live on any mechanical ventilation or would not want any life prolonging modalities. She is allow natural . at bedside. Lovenox for DVT prophylaxis. Cardiac carb consistent diet. Attestations Medical Necessity Statement*: Admission for 2 midnights for shortness of breath and hypoxia secondary to pneumonia, uncontrolled type 2 diabetes mellitus. Time Spent in Patient Care: Greater than 35 minutes (>than 50% of time spent in counselling and/or direct pt care on unit). 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
[2020-09-01 18:45] LABS: Thyroid Stimulating Hormone 0.93 uIU/mL (0.27-4.20)
[2020-09-01 18:46] LABS: NT Pro B Type Natriuretic Pept 333 pg/mL (0-450); Procalcitonin 0.06 ng/mL (0-0.5)
[2020-09-01 18:58] LABS: Iron 20 ug/dL (37-145)
[2020-09-01] MEDS: cefTRIAXone 1,000 MG in sodium chloride 0.9% (plus) 50 ML 100 MG IV (18:58)
[2020-09-01 19:15] LABS: Percent Saturation 6.3 % (20-50); Total Iron Binding Capacity 313 mcg/dl; Unsaturated Iron Binding 293 ug/dL (112-347)
[2020-09-01 19:31] LABS: Lactic Sepsis W/Reflex 1.5 mmol/L (0.5-2.2)
[2020-09-01 20:24] VITALS: BP 127/66; PULSE 89; RESP 18; O2SAT 94
[2020-09-01 20:48] LABS: Influenza A by IFA Negative (Negative); Influenza B by IFA Negative (Negative)
[2020-09-01 20:57] VITALS: BP 146/63; PULSE 89; RESP 22; TEMP 36.9; O2SAT 95
[2020-09-01 21:17] LABS: Glucose Point of Care 302 mg/dL (70-110)
[2020-09-01 21:46] VITALS: PULSE 95; RESP 20; O2SAT 95
[2020-09-01] MEDS: metoprolol tartrate 25 mg Tablet 12.5 MG PO (21:57)
[2020-09-01] MEDS: azithromycin 250 mg Tablet 500 MG PO (21:59)
[2020-09-01] MEDS: benzonatate 100 mg Capsule PO (21:59)
[2020-09-01] MEDS: atorvastatin 40 mg Tablet PO (22:00)
[2020-09-01] MEDS: insulin glargine 100 units/1 mL 50 UNIT SUBCUT (22:00)
[2020-09-01] MEDS: enoxaparin 40 mg/0.4 mL Syringe SUBCUT (22:00)
[2020-09-01] MEDS: famotidine 20 mg/2 mL INJ IVP (22:27)
[2020-09-02] VITALS (15 sets, daily range): BP systolic 126–167; BP diastolic 67–81; PULSE 66–87; RESP 17–20; TEMP 36.4–37; O2SAT 93–98
[2020-09-02] MEDS: ipratropium-albuterol 3 mL Neb INHALATION ×4 (02:50→21:17)
[2020-09-02] MEDS: acetaminophen 325 mg Tablet 650 MG PO (04:34)
[2020-09-02 06:20] LABS: Basophils # 0.1 10^3/uL (0.0-0.1); Basophils % 0.3 %; Hematocrit 34.8 % (37.0-47.0); Hemoglobin 10.7 g/dL (11.5-15.3); Lymphocytes # 1.8 10^3/uL (0.8-4.8); Lymphocytes % 8.8 %; Mean Corpuscular HGB Conc 30.7 g/dL (30.0-36.0); Mean Corpuscular Hemoglobin 26.4 pg (28.0-34.0); Mean Corpuscular Volume 85.7 fL (81-99); Mean Platelet Volume 10.6 fL (7.4-10.4); Monocytes # 2.6 10^3/uL (0.2-0.9); Monocytes % 12.9 %; Neutrophils # 15.63 10^3/uL (1.8-7.7); Neutrophils % 76.9 %; Nucleated Red Blood Cells % 0 %; Platelet Count 318 10^3/cmm (130-400); Red Blood Count 4.06 10^6/uL (4.1-5.3); Red Cell Distribution Width 17.7 % (12.1-15.1); White Blood Count 20.3 10^3/uL (4.0-10.0)
[2020-09-02 06:33] LABS: Glucose Point of Care 146 mg/dL (70-110)
[2020-09-02 06:34] LABS: Urine Appearance Clear (CLEAR); Urine Color Yellow (Yellow)
[2020-09-02 06:35] LABS: Bilirubin Urine Neg (Negative); Blood Urine Neg (Negative); Glucose Urine UA 2+ (Normal); Ketones Urine Negative (Negative); Leukocyte Esterase Urine Negative (Negative); Nitrate Urine Negative (Negative); Protein Urine Neg (Negative); Specific Gravity, Urine 1.025 (1.005-1.030); Urobilinogen Urine 1 mg/dL (Negative); pH Urine 5 (5-7)
[2020-09-02 06:36] LABS: Bacteria Urine 1+ /hpf; Mucus Urine 1+ /hpf; RBC Urine RARE /hpf (0-2); Squamous Epithelial Cell Urine 0-4 /hpf (0-5); Transitional Epi Cells Urine 0-4 /hpf; WBC Urine 0-4 /hpf (0-5)
[2020-09-02 06:37] LABS: Add Urine Culture? No; Amorphous Sediment Urine 1+ /hpf; Potassium, Radom Urine 49 mmol/L; Urine Random Chloride 69 mmol/L; Urine Random Sodium 75 mmol/L
[2020-09-02 06:39] LABS: Alanine Aminotransferase 13 U/L (0-33); Albumin Level 3.1 g/dL (3.5-5.2); Alkaline Phosphatase 94 IU/L (35-105); Anion Gap 11.8 (5-19); Aspartate Amino Transferase 13 U/L (0-32); Blood Urea Nitrogen 15 mg/dL (8-23); Calcium 8.5 mg/dL (8.5-10.5); Carbon Dioxide 25 mmol/L (22-29); Chloride 99 mmol/L (98-107); Globulin 3.3 g/dL (1.3-4.6); Glucose 139 mg/dL (65-115); Magnesium 1.8 mg/dL (1.7-2.3); Osmolality Calculated 277 mOsm/kg (285-295); Phosphorus 2.6 mg/dL (2.5-4.5); Potassium 3.8 mmol/L (3.5-5.1); Sodium 132 mmol/L (136-145); Total Bilirubin 0.5 mg/dL (0.15-1.2); Total Protein 6.4 g/dL (6.6-8.7)
[2020-09-02 06:41] LABS: Chol HDL Ratio 2.13 mg/dL (0.0-4.40); Cholesterol 85 mg/dL (0-200); HDL Cholesterol 40 mg/dL (60-100); LDL Cholesterol Calculated 36 mg/dL (50-129); Triglycerides 43 mg/dL (0-150); VLDL Cholestrol Calculation 9 mg/dL (0-30)
[2020-09-02 06:57] LABS: Estmated Average Glucose 148; Hemoglobin A1C 6.8 % (4.0-6.0)
[2020-09-02 07:07] LABS: INR 1.17 (0.8-1.2)
[2020-09-02] MEDS: budesonide 0.5 mg/2 mL Neb INHALATION ×2 (08:51→21:17)
--- NOTE | 2020-09-02 08:53 | PC.CHAP ---
Pastoral Care Encounter/Spiritual Assessment Type of Contact [] Declined supervisor poultry hatchery visit [x] Patient/Family/Request visit [] Outpatient visit [] Follow-up visit [] Physician referral [] Code/Alert [x] Routine visit [] Staff referral [] Actively dying [] Patient sleeping [] Family support [] [] Out of room [] Palliative care [] [] Receiving care in room [] Pre-surgical visit [] Trauma [] Long length of stay [] ICU visit [] Other: Relational/Emotional Strength [] Patient feels connected with others/family/visitors/staff [] Distress [] Loneliness/isolation [] Abandonment Spirituality of Patient [] Person of Velvet [] Attends Holiness of their Velvet [] Believes in Prayer [] Reads Bible or Restorationist materials [] There are Spiritual issues to be addressed Quartz Mounter Interventions [x] Prayer [x] Active listening [x] Non-anxious presence [x] Spiritual/emotional support [] Crisis/trauma care [] Spiritual counseling [] Bereavement support [] Provided bereavement packet [] Provided Bible/devotional materials [] Provided toy/stuffed animal, coloring book to patient or family member [] Provided Communion [] Anointing/[place] [] Salvation [x] Completed spiritual assessment [] Other: Impact on Illness or Injury [] Angry [] Fearful [] Anxious [] Often cries [] Exhaustion [] Unable to work [] Unable to attend yarsani [] Unable to walk/stand [] Unable to read [] Unable to drive [] Unable to eat/drink [] Unable to sleep [] Unable to be with family [] Patient intubated [] Other: Summary patient resting well patient is wondering about diet being served... potatoes and bread should not be on her tray.. also no pad or diaper was put on patient for comfort... has some issues.. advised nurse on duty.. she stated she would assist Time spent with patient 15 min
[2020-09-02] MEDS: ferrous gluconate 324 mg Tablet PO ×2 (09:21→18:38)
[2020-09-02] MEDS: aspirin 81 mg EC Tablet PO (09:21)
[2020-09-02] MEDS: fluoxetine 20 mg Capsule 40 MG PO (09:21)
[2020-09-02] MEDS: benzonatate 100 mg Capsule PO ×3 (09:21→20:32)
[2020-09-02] MEDS: buPROPion XL (24 HR) 150 mg Tablet PO (09:21)
[2020-09-02] MEDS: azithromycin 250 mg Tablet 500 MG PO (09:21)
[2020-09-02] MEDS: lisinopril 20 mg Tablet PO (09:21)
[2020-09-02] MEDS: famotidine 20 mg/2 mL INJ IVP ×2 (09:22→21:22)
[2020-09-02] MEDS: metoprolol tartrate 25 mg Tablet 12.5 MG PO ×2 (09:22→20:32)
[2020-09-02] MEDS: isosorbide mononitrate ER 30 mg Tablet PO (09:22)
--- NOTE | 2020-09-02 11:02 | PC.CHAP ---
Pastoral Care Encounter/Spiritual Assessment Type of Contact [] Declined die cast patternmaker visit [] Patient/Family/Request visit [] Outpatient visit [] Follow-up visit [] Physician referral [] Code/Alert [x] Routine visit [] Staff referral [] Actively dying [] Patient sleeping [] Family support [] [] Out of room [] Palliative care [] [x] Receiving care in room [] Pre-surgical visit [] Trauma [] Long length of stay [] ICU visit [] Other: Relational/Emotional Strength [x] Patient feels connected with others/family/visitors/staff [] Distress [] Loneliness/isolation [] Abandonment Spirituality of Patient [x] Person of Velvet [] Attends Oriental Orthodox of their Velvet [x] Believes in Prayer [] Reads Bible or Shinto materials [] There are Spiritual issues to be addressed Power Digger Operator Interventions [x] Prayer [x] Active listening [x] Non-anxious presence [x] Spiritual/emotional support [] Crisis/trauma care [x] Spiritual counseling [] Bereavement support [] Provided bereavement packet [] Provided Bible/devotional materials [] Provided toy/stuffed animal, coloring book to patient or family member [] Provided Communion [] Anointing/[place] [] Salvation [x] Completed spiritual assessment [] Other: Impact on Illness or Injury [] Angry [x] Fearful [] Anxious [] Often cries [] Exhaustion [x] Unable to work [] Unable to attend christian [] Unable to walk/stand [] Unable to read [] Unable to drive [] Unable to eat/drink [] Unable to sleep [] Unable to be with family [] Patient intubated [] Other: Summary SOB she is not feeling well unable to communicate does't know about her health, is with her / negtives Time spent with patient 10 mins
[2020-09-02 11:38] LABS: Glucose Point of Care 151 mg/dL (70-110)
--- NOTE | 2020-09-02 16:55 | P.PN_ITS ---
Subjective Subjective: Interval history: No acute events overnight. On examination patient states she is feeling little better though continues to have hoarse voice. Denies any nausea vomiting, headache. Currently on 2 L nasal cannula saturating 93%. Has remained hemodynamically stable and afebrile overnight. Vitals/I&O/Wt Last Vital Signs Temp 98.3 F 09/02/20 12:00 Pulse 81 09/02/20 15:07 Resp 20 H 09/02/20 14:58 BP 126/67 09/02/20 12:00 Pulse Ox 93 09/02/20 14:58 09/02/20 09/02/20 09/02/20 06:59 14:59 22:59 Intake Total 240 / 790 360 / 360 Output Total 200 / 200 Balance 40 / 590 360 / 360 Weight last 48 hrs Weight 108.363 kg Weight 101.605 kg Physical Exam Narrative: EXAM NARRATIVE: General: No acute distress, AO x3, tired appearing, HEENT: PERRLA, pupils bilaterally equal and reactive Chest: Normal vesicular breath sounds, bronchial breath sounds in right upper lobe and middle lobe, diffuse rhonchi, equal good air entry bilaterally CVS: S1-S2 regular, no murmurs, no tachycardia, no gallops, no rubs Abdomen: Soft, nontender, no organomegaly, bowel sounds present Neuro: No focal deficits, no facial deformity, AO x3, power 5/5 in all limbs Data : 09/02/20 05:59 09/02/20 05:59 Micro: Microbiology 09/02/20 04:40 Legionella Urinary Antigen - Final Urine Catheterized 09/01/20 15:56 Blood Culture - Preliminary Blood SPECIMEN COLLECTED 09/01/20 19:05 Blood Culture - Preliminary Blood SPECIMEN COLLECTED A&P Assessment and plan (1) Shortness of breath: Status: Acute (2) Pneumonia: Status: Acute Qualifiers: Laterality: right Lung location: upper lobe of lung Pneumonia type: due to unspecified organism Qualified Code(s): J18.9 - Pneumonia, unspecified organism (3) Hypertension: Status: Acute (4) DM2 (diabetes mellitus, type 2): Status: Acute Additional A&P Information 71-year-old female past medical history type 2 diabetes mellitus, hypertension presented to the ER with difficulty in breathing and cough for last 3 days found to have pneumonia on chest x-ray. Shortness of breath: Secondary to pneumonia: CT chest results appreciated. Patient negative, proBNP and procalcitonin negative. Sputum culture results awaited. Given the CT chest results we will switch over to vancomycin and cefepime to cover for Pseudomonas and MRSA. Will discontinue vancomycin once MRSA is negative. The CT results will also look for modified barium swallow evaluation to rule out any aspiration. Oxygen supplementation keeping saturation over 90%. Tessalon Perles. DuoNebs every 6 hour, budesonide twice daily. Oxygen supplementation keeping saturation over 90%. Incentive spirometry and flutter valve. Last echocardiogram from 12/01/2019 shows an EF of 65% with grade 1 diastolic dysfunction with normal right ventricular pressures. -Hypertension: Continue home medication of Benzapril, Imdur, metoprolol. Goal blood pressure less than 140/90 mmHg. -Type 2 diabetes mellitus: Uncontrolled as per patient. Continue lispro 35 units 3 times daily premeals along with correctional insulin sliding scale. Lantus 50 units at bedtime. HbA1c 6.8. Continue chronic medication occluding atorvastatin, bupropion, fluoxetine. CODE STATUS: Patient states she would not want to live on any mechanical ventilation or would not want any life prolonging modalities. She is allow natural . at bedside. Lovenox for DVT prophylaxis. Cardiac carb consistent diet. Attestations Medical Necessity Statement*: Requires further hospitalization for management of shortness of breath secondary to right upper lobe bronchopneumonia Time Spent in Patient Care: Greater than 35 minutes (>than 50% of time spent in counselling and/or direct pt care on unit) . Coding Level of Care Code Acute Gel Coat Sprayer for Mayank Bentley Diagnoses Shortness of breath R06.02 Pneumonia J18.9 Laterality: right Lung location: upper lobe of lung Pneumonia type: due to unspecified organism Hypertension I10 DM2 (diabetes mellitus, type 2) E11.9
[2020-09-02 17:24] LABS: Glucose Point of Care 55 mg/dL (70-110)
[2020-09-02 17:24] LABS: Glucose Point of Care 70 mg/dL (70-110)
[2020-09-02 18:21] LABS: Procalcitonin 0.05 ng/mL (0-0.5)
[2020-09-02] MEDS: fluticasone nasal spray 16gm Btl 1 SPRAY NASAL (18:38)
[2020-09-02] MEDS: cefepime 2,000 MG in sodium chloride 0.9% (plus) 50 ML 100 MG IV (18:38)
[2020-09-02] MEDS: iron sucrose 200 MG in sodium chloride 0.9% (100 ml) 100 ML 220 MG IV (20:27)
[2020-09-02] MEDS: enoxaparin 40 mg/0.4 mL Syringe SUBCUT (20:32)
[2020-09-02 20:48] LABS: Glucose Point of Care 275 mg/dL (70-110)
[2020-09-02] MEDS: vancomycin 1,500 MG/300 ML PIGGYBACK 200 MG IV (20:57)
[2020-09-02] MEDS: insulin glargine 100 units/1 mL 50 UNIT SUBCUT (20:58)
[2020-09-02] MEDS: atorvastatin 40 mg Tablet PO (21:10)
[2020-09-03] VITALS (12 sets, daily range): BP systolic 143–177; BP diastolic 71–79; PULSE 71–91; RESP 16–20; TEMP 36.4–37.5; O2SAT 90–97
[2020-09-03 02:08] LABS: Glucose Point of Care 114 mg/dL (70-110)
[2020-09-03] MEDS: ipratropium-albuterol 3 mL Neb INHALATION ×3 (02:55→20:12)
[2020-09-03] MEDS: cefepime 2,000 MG in sodium chloride 0.9% (plus) 50 ML 100 MG IV ×2 (05:29→17:51)
[2020-09-03 06:03] LABS: Basophils # 0.1 10^3/uL (0.0-0.1); Basophils % 0.4 %; Eosinophils # 0.1 10^3/uL (0.0-0.8); Eosinophils % 0.4 %; Hematocrit 37.1 % (37.0-47.0); Lymphocytes # 1.5 10^3/uL (0.8-4.8); Lymphocytes % 8.9 %; Mean Corpuscular HGB Conc 29.6 g/dL (30.0-36.0); Mean Corpuscular Hemoglobin 25.9 pg (28.0-34.0); Mean Corpuscular Volume 87.3 fL (81-99); Mean Platelet Volume 10.5 fL (7.4-10.4); Monocytes # 1.9 10^3/uL (0.2-0.9); Monocytes % 11.4 %; Neutrophils # 12.72 10^3/uL (1.8-7.7); Neutrophils % 77.9 %; Nucleated Red Blood Cells % 0 %; Platelet Count 315 10^3/cmm (130-400); Red Blood Count 4.25 10^6/uL (4.1-5.3); Red Cell Distribution Width 17.6 % (12.1-15.1); White Blood Count 16.4 10^3/uL (4.0-10.0)
[2020-09-03 06:20] LABS: Glucose Point of Care 99 mg/dL (70-110)
[2020-09-03 06:36] LABS: Alanine Aminotransferase 21 U/L (0-33); Alkaline Phosphatase 107 IU/L (35-105); Aspartate Amino Transferase 23 U/L (0-32); Blood Urea Nitrogen 17 mg/dL (8-23); Carbon Dioxide 23 mmol/L (22-29); Chloride 99 mmol/L (98-107); Globulin 3.9 g/dL (1.3-4.6); Glucose 84 mg/dL (65-115); Osmolality Calculated 279 mOsm/kg (285-295); Sodium 134 mmol/L (136-145); Total Bilirubin 0.6 mg/dL (0.15-1.2); Total Protein 6.9 g/dL (6.6-8.7)
--- NOTE | 2020-09-03 08:40 | FL_ITS ---
WS: [id number] Modified barium swallow, 09/03/2020 Clinical Data: Other dysphagia Comparison: None. Fluoroscopy time: 3.4 minutes. Findings: Patient exhibited premature spillage in the oral phase. In the pharynx there was no aspiration or pen etration. There is minimal residual in the vallecula and piriform sinuses but cleared with swallows. The barium tablet did pass through the esophagus with liquid assist. FL/FL barium swallow modifd [id number] Impression: 1. Premature spillage from the oral cavity. 2. Negative for aspiration or penetration. 3. Minimal residual in the vallecula and piriform sinuses which cleared with sw allowing.
[2020-09-03] MEDS: benzonatate 100 mg Capsule PO ×3 (10:30→21:06)
[2020-09-03] MEDS: ferrous gluconate 324 mg Tablet PO ×2 (10:30→17:45)
[2020-09-03] MEDS: famotidine 20 mg/2 mL INJ IVP (10:32)
[2020-09-03] MEDS: fluoxetine 20 mg Capsule 40 MG PO (10:32)
[2020-09-03] MEDS: aspirin 81 mg EC Tablet PO (10:32)
[2020-09-03] MEDS: metoprolol tartrate 25 mg Tablet 12.5 MG PO ×2 (10:32→21:06)
[2020-09-03] MEDS: lisinopril 20 mg Tablet PO (10:33)
[2020-09-03] MEDS: fluticasone nasal spray 16gm Btl 1 SPRAY NASAL ×2 (10:33→17:46)
[2020-09-03] MEDS: isosorbide mononitrate ER 30 mg Tablet PO (10:33)
[2020-09-03 10:46] LABS: Glucose Point of Care 200 mg/dL (70-110)
[2020-09-03] MEDS: buPROPion XL (24 HR) 150 mg Tablet PO (10:46)
[2020-09-03] MEDS: acetaminophen 325 mg Tablet 650 MG PO (10:48)
[2020-09-03] MEDS: vancomycin 1,500 MG/300 ML PIGGYBACK 200 MG IV (14:12)
--- NOTE | 2020-09-03 14:51 | P.PN_ITS ---
Subjective Subjective: Interval history: No events overnight. Patient states she is feeling a lot better. Currently on examination on 3 L nasal cannula saturating 95%. Denies any nausea, vomiting, headache. Working minimally well with Acapella. Vitals/I&O/Wt Last Vital Signs Temp 98.9 F 09/03/20 12:00 Pulse 75 09/03/20 14:26 Resp 20 H 09/03/20 14:22 BP 143/79 09/03/20 12:00 Pulse Ox 94 09/03/20 14:22 09/02/20 09/03/20 09/03/20 22:59 06:59 14:59 Intake Total 280 / 640 300 / 940 410 / 410 Output Total 0 / 0 Balance 280 / 640 300 / 940 410 / 410 Weight last 48 hrs Weight 108.454 kg Weight 108.363 kg Weight 101.605 kg Physical Exam Narrative: EXAM NARRATIVE: General: No acute distress, AO x3, HEENT: PERRLA, pupils bilaterally equal and reactive Chest: Normal vesicular breath sounds, bronchial breath sounds in right upper lobe and middle lobe, diffuse rhonchi, equal good air entry bilaterally CVS: S1-S2 regular, no murmurs, no tachycardia, no gallops, no rubs Abdomen: Soft, nontender, no organomegaly, bowel sounds present Neuro: Residual weakness on the left side from old stroke, slurred speech from old stroke. Confirmed with patient and patient's at bedside. Data : 09/03/20 05:29 09/03/20 05:29 Micro: Microbiology 09/01/20 15:56 Blood Culture - Preliminary Blood NEGATIVE TO DATE 09/01/20 19:05 Blood Culture - Preliminary Blood NEGATIVE TO DATE A&P Assessment and plan (1) Shortness of breath: Status: Acute (2) Pneumonia: Status: Acute Qualifiers: Laterality: right Lung location: upper lobe of lung Pneumonia type: due to unspecified organism Qualified Code(s): J18.9 - Pneumonia, unspecified organism (3) Hypertension: Status: Acute (4) DM2 (diabetes mellitus, type 2): Status: Acute Additional A&P Information 71-year-old female past medical history type 2 diabetes mellitus, hypertension presented to the ER with difficulty in breathing and cough for last 3 days found to have pneumonia on chest x-ray. Shortness of breath: Secondary to pneumonia: CT chest results appreciated. Patient negative, proBNP and procalcitonin negative. Sputum culture results awaited. Continue vancomycin and cefepime for now. Modified barium swallow results appreciated consistent with mild pharyngeal residue, no aspiration, penetration significant esophageal dysmotility most likely related to reflux causing aspiration. Given the above we will switch from famotidine to Protonix. Oxygen supplementation keeping saturation over 90%. Tessalon Perles. DuoNebs every 6 hour, budesonide twice daily. Oxygen supplementation keeping saturation over 90%. Incentive spirometry and flutter valve. Last echocardiogram from 12/01/2019 shows an EF of 65% with grade 1 diastolic dysfunction with normal right ventricular pressures. -Hypertension: Continue home medication of Benzapril, Imdur, metoprolol. Goal blood pressure less than 140/90 mmHg. -Type 2 diabetes mellitus: Uncontrolled as per patient. Continue lispro 35 units 3 times daily premeals along with correctional insulin sliding scale. Lantus 50 units at bedtime. HbA1c 6.8. Continue chronic medication occluding atorvastatin, bupropion, fluoxetine. CODE STATUS: Patient states she would not want to live on any mechanical ventilation or would not want any life prolonging modalities. She is allow natural . at bedside. Lovenox for DVT prophylaxis. Cardiac carb consistent diet. Protonix for PUD prophylaxis Attestations Medical Necessity Statement*: Requires further hospitalization for management of shortness of breath/hypoxia from pneumonia Time Spent in Patient Care: Greater than 35 minutes (>than 50% of time spent in counselling and/or direct pt care on unit) . Coding Level of Care Code Acute Client Manager Large Law for love Bentley Diagnoses Shortness of breath R06.02 Pneumonia J18.9 Laterality: right Lung location: upper lobe of lung Pneumonia type: due to unspecified organism Hypertension I10 DM2 (diabetes mellitus, type 2) E11.9
[2020-09-03 17:12] LABS: Glucose Point of Care 158 mg/dL (70-110)
[2020-09-03] MEDS: pantoprazole DR 40 mg Tablet PO (17:45)
--- NOTE | 2020-09-03 19:48 | PC.NURSE ---
PT HAS DONE PRETTY WELL TODAY. THIS AFTERNOON PT WAS FOUND BY PHYSICAL THERAPIST AND AN AID IN THE FLOOR. THIS NURSE WAS UNAWARE OF THE INCIDENT. I WAS DISCHARGING A PT AND ADMITTING A NEW ONE. THE AID AND PHYSICAL THERAPIST BOTH TOLD ME WHAT HAD HAPPENED. THIS NURSE WENT IN TO ASSESS PT AND PT APPEARED TO BE FINE. NO COMPLAINTS OF PAIN. PT WAS MONITORED THROUGHOUT THE REST OF MY SHIFT AND DID WELL. WILL CONTINUE TO MONITOR PT THROUGHOUT THE NIGHT.
[2020-09-03] MEDS: budesonide 0.5 mg/2 mL Neb INHALATION (20:12)
[2020-09-03 20:53] LABS: Glucose Point of Care 291 mg/dL (70-110)
[2020-09-03] MEDS: iron sucrose 200 MG in sodium chloride 0.9% (100 ml) 100 ML 220 MG IV (21:05)
[2020-09-03] MEDS: atorvastatin 40 mg Tablet PO (21:06)
[2020-09-03] MEDS: enoxaparin 40 mg/0.4 mL Syringe SUBCUT (21:06)
[2020-09-03] MEDS: insulin glargine 100 units/1 mL 50 UNIT SUBCUT (21:07)
[2020-09-04] VITALS (14 sets, daily range): BP systolic 145–174; BP diastolic 64–78; PULSE 73–90; RESP 16–19; TEMP 36.1–37.3; O2SAT 92–99
[2020-09-04] MEDS: ipratropium-albuterol 3 mL Neb INHALATION ×4 (03:20→20:39)
[2020-09-04] MEDS: cefepime 2,000 MG in sodium chloride 0.9% (plus) 50 ML 100 MG IV ×2 (05:20→18:20)
[2020-09-04 06:38] LABS: Glucose Point of Care 125 mg/dL (70-110)
[2020-09-04 07:37] LABS: Basophils # 0.1 10^3/uL (0.0-0.1); Basophils % 0.4 %; Eosinophils # 0.2 10^3/uL (0.0-0.8); Hematocrit 36.8 % (37.0-47.0); Hemoglobin 10.8 g/dL (11.5-15.3); Lymphocytes # 1.7 10^3/uL (0.8-4.8); Lymphocytes % 11.9 %; Mean Corpuscular HGB Conc 29.3 g/dL (30.0-36.0); Mean Corpuscular Hemoglobin 25.7 pg (28.0-34.0); Mean Corpuscular Volume 87.6 fL (81-99); Mean Platelet Volume 10.7 fL (7.4-10.4); Monocytes # 2.1 10^3/uL (0.2-0.9); Monocytes % 14.6 %; Neutrophils # 10.25 10^3/uL (1.8-7.7); Neutrophils % 70.4 %; Nucleated Red Blood Cells % 0 %; Platelet Count 328 10^3/cmm (130-400); Red Cell Distribution Width 17.5 % (12.1-15.1); White Blood Count 14.6 10^3/uL (4.0-10.0)
[2020-09-04] MEDS: budesonide 0.5 mg/2 mL Neb INHALATION ×2 (08:06→20:39)
[2020-09-04] MEDS: acetaminophen 325 mg Tablet 650 MG PO ×2 (08:18→18:20)
[2020-09-04] MEDS: isosorbide mononitrate ER 30 mg Tablet PO (08:19)
[2020-09-04] MEDS: benzonatate 100 mg Capsule PO ×3 (08:19→20:36)
[2020-09-04] MEDS: ferrous gluconate 324 mg Tablet PO ×2 (08:19→18:17)
[2020-09-04] MEDS: aspirin 81 mg EC Tablet PO (08:19)
[2020-09-04] MEDS: fluoxetine 20 mg Capsule 40 MG PO (08:19)
[2020-09-04] MEDS: buPROPion XL (24 HR) 150 mg Tablet PO (08:20)
[2020-09-04] MEDS: pantoprazole DR 40 mg Tablet PO (08:20)
[2020-09-04] MEDS: lisinopril 20 mg Tablet PO (08:20)
[2020-09-04] MEDS: metoprolol tartrate 25 mg Tablet 12.5 MG PO (08:20)
[2020-09-04] MEDS: vancomycin 1,500 MG/300 ML PIGGYBACK 200 MG IV ×2 (08:22→21:14)
[2020-09-04 11:02] LABS: Glucose Point of Care 281 mg/dL (70-110)
--- NOTE | 2020-09-04 14:22 | DCPLANNER ---
IMM given patient updated and given a copy of IMM - signed and dated.
--- NOTE | 2020-09-04 15:47 | P.PN_ITS ---
Subjective Subjective: Interval history: No acute events overnight. Patient on examination sitting up in chair today with at bedside. She is awake and alert on examination. Saturating 94% on 2 L nasal cannula. Denies any nausea, vomiting, headache. States she is feeling better today. Vitals/I&O/Wt Last Vital Signs Temp 98.9 F 09/04/20 11:32 Pulse 77 09/04/20 14:22 Resp 16 09/04/20 14:19 BP 145/68 09/04/20 11:32 Pulse Ox 94 09/04/20 14:19 09/04/20 09/04/20 09/04/20 06:59 14:59 22:59 Intake Total 720 / 720 Balance 720 / 720 Weight last 48 hrs Weight 108.454 kg Physical Exam Narrative: EXAM NARRATIVE: General: No acute distress, AO x3, HEENT: PERRLA, pupils bilaterally equal and reactive Chest: Normal vesicular breath sounds, bronchial breath sounds in right upper lobe and middle lobe, diffuse rhonchi, equal good air entry bilaterally CVS: S1-S2 regular, no murmurs, no tachycardia, no gallops, no rubs Abdomen: Soft, nontender, no organomegaly, bowel sounds present Neuro: Residual weakness on the left side from old stroke, slurred speech from old stroke. Confirmed with patient and patient's at bedside. Data : 09/04/20 07:00 09/03/20 05:29 Micro: Microbiology 09/02/20 18:45 MRSA Culture - Final Nose A&P Assessment and plan (1) Shortness of breath: Status: Acute (2) Pneumonia: Status: Acute Qualifiers: Laterality: right Lung location: upper lobe of lung Pneumonia type: due to unspecified organism Qualified Code(s): J18.9 - Pneumonia, unspecified organism (3) Hypertension: Status: Acute (4) DM2 (diabetes mellitus, type 2): Status: Acute Additional A&P Information 71-year-old female past medical history type 2 diabetes mellitus, hypertension presented to the ER with difficulty in breathing and cough for last 3 days found to have pneumonia on chest x-ray. Shortness of breath: Secondary to pneumonia: CT chest results appreciated. Patient negative, proBNP and procalcitonin negative. Sputum culture results awaited. Continue vancomycin and cefepime for now. Modified barium swallow results appreciated consistent with mild pharyngeal residue, no aspiration, penetration significant esophageal dysmotility most likely related to reflux causing aspiration. Given the above we will switch from famotidine to Protonix. Oxygen supplementation keeping saturation over 90%. Tessalon Perles. DuoNebs every 6 hour, budesonide twice daily. Oxygen supplementation keeping saturation over 90%. Incentive spirometry and flutter valve. Last echocardiogram from 12/01/2019 shows an EF of 65% with grade 1 diastolic dysfunction with normal right ventricular pressures. -Hypertension: Blood pressure mildly elevated. Increase lisinopril to 40 mg daily. Continue with Imdur and metoprolol at curr ent dose. Goal blood pressure less than 140/90 mmHg. -Type 2 diabetes mellitus: Uncontrolled as per patient. Continue lispro 35 units 3 times daily premeals along with correctional insulin sliding scale. Lantus 50 units at bedtime. HbA1c 6.8. Continue chronic medication occluding atorvastatin, bupropion, fluoxetine. CODE STATUS: Patient states she would not want to live on any mechanical ventilation or would not want any life prolonging modalities. She is allow natural . at bedside. Lovenox for DVT prophylaxis. Cardiac carb consistent diet. Protonix for PUD prophylaxis Discharge planning: Most likely discharge tomorrow if patient continues to remain stable. Plan to discharge on oral antibiotics after home O2 eval. Patient will have to follow-up with pulmonology as an outpatient to rule out possible cancer. and patient is agreeable to same. Attestations Medical Necessity Statement*: Requires further hospitalization for management of hypoxia secondary to pneumonia. Time Spent in Patient Care: Greater than 35 minutes (>than 50% of time spent in counselling and/or direct pt care on unit) . Coding Level of Care Code Acute Carbon Sequestration Plant Manager for Chg Fwd Diagnoses Shortness of breath R06.02 Pneumonia J18.9 Laterality: right Lung location: upper lobe of lung Pneumonia type: due to unspecified organism Hypertension I10 DM2 (diabetes mellitus, type 2) E11.9
[2020-09-04 17:10] LABS: Glucose Point of Care 194 mg/dL (70-110)
[2020-09-04] MEDS: fluticasone nasal spray 16gm Btl 1 SPRAY NASAL (18:19)
[2020-09-04 20:32] LABS: Glucose Point of Care 290 mg/dL (70-110)
[2020-09-04] MEDS: iron sucrose 200 MG in sodium chloride 0.9% (100 ml) 100 ML 220 MG IV (20:35)
[2020-09-04] MEDS: insulin glargine 100 units/1 mL 60 UNIT SUBCUT (20:36)
[2020-09-04] MEDS: atorvastatin 40 mg Tablet PO (20:36)
[2020-09-04] MEDS: enoxaparin 40 mg/0.4 mL Syringe SUBCUT (20:36)
[2020-09-04] MEDS: metoprolol tartrate 25 mg Tablet PO (20:37)
[2020-09-05] VITALS (13 sets, daily range): BP systolic 127–163; BP diastolic 69–82; PULSE 78–95; RESP 17–18; TEMP 36.7–37.1; O2SAT 88–97
[2020-09-05] MEDS: ipratropium-albuterol 3 mL Neb INHALATION ×3 (02:40→14:25)
[2020-09-05] MEDS: cefepime 2,000 MG in sodium chloride 0.9% (plus) 50 ML 100 MG IV (05:59)
[2020-09-05 06:31] LABS: Glucose Point of Care 117 mg/dL (70-110)
[2020-09-05] MEDS: budesonide 0.5 mg/2 mL Neb INHALATION (08:25)
[2020-09-05] MEDS: vancomycin 1,500 MG/300 ML PIGGYBACK 200 MG IV (09:21)
[2020-09-05] MEDS: metoprolol tartrate 25 mg Tablet PO (09:27)
[2020-09-05] MEDS: ferrous gluconate 324 mg Tablet PO (09:28)
[2020-09-05] MEDS: lisinopril 20 mg Tablet 40 MG PO (09:30)
[2020-09-05] MEDS: aspirin 81 mg EC Tablet PO (09:31)
[2020-09-05] MEDS: benzonatate 100 mg Capsule PO ×2 (09:31→15:36)
[2020-09-05] MEDS: isosorbide mononitrate ER 30 mg Tablet PO (09:31)
[2020-09-05] MEDS: pantoprazole DR 40 mg Tablet PO (09:31)
[2020-09-05] MEDS: buPROPion XL (24 HR) 150 mg Tablet PO (09:31)
[2020-09-05] MEDS: fluoxetine 20 mg Capsule 40 MG PO (09:31)
[2020-09-05] MEDS: fluticasone nasal spray 16gm Btl 1 SPRAY NASAL (09:32)
[2020-09-05 10:28] LABS: Glucose Point of Care 223 mg/dL (70-110)
[2020-09-05 10:51] LABS: Alanine Aminotransferase 51 U/L (0-33); Albumin Level 2.8 g/dL (3.5-5.2); Alkaline Phosphatase 94 IU/L (35-105); Anion Gap 14.3 (5-19); Aspartate Amino Transferase 48 U/L (0-32); Blood Urea Nitrogen 19 mg/dL (8-23); Calcium 8.7 mg/dL (8.5-10.5); Carbon Dioxide 24 mmol/L (22-29); Chloride 103 mmol/L (98-107); Globulin 3.6 g/dL (1.3-4.6); Glucose 205 mg/dL (65-115); Osmolality Calculated 292 mOsm/kg (285-295); Potassium 4.3 mmol/L (3.5-5.1); Sodium 137 mmol/L (136-145); Total Bilirubin 0.3 mg/dL (0.15-1.2); Total Protein 6.4 g/dL (6.6-8.7)
[2020-09-05 10:54] LABS: Basophils # 0.1 10^3/uL (0.0-0.1); Basophils % 0.7 %; Eosinophils # 0.2 10^3/uL (0.0-0.8); Eosinophils % 1.2 %; Hematocrit 34.7 % (37.0-47.0); Hemoglobin 10.5 g/dL (11.5-15.3); Lymphocytes # 1.2 10^3/uL (0.8-4.8); Lymphocytes % 8.4 %; Mean Corpuscular HGB Conc 30.3 g/dL (30.0-36.0); Mean Corpuscular Hemoglobin 26.3 pg (28.0-34.0); Mean Corpuscular Volume 86.8 fL (81-99); Mean Platelet Volume 10.4 fL (7.4-10.4); Monocytes # 1.7 10^3/uL (0.2-0.9); Monocytes % 11.9 %; Neutrophils # 10.77 10^3/uL (1.8-7.7); Neutrophils % 73.9 %; Nucleated Red Blood Cells % 0 %; Platelet Count 388 10^3/cmm (130-400); Red Cell Distribution Width 17.7 % (12.1-15.1); White Blood Count 14.6 10^3/uL (4.0-10.0)
--- NOTE | 2020-09-05 12:04 | PM.DCS ---
Discharge Providers Date of Admission: 09/01/20 17:19 Date of Discharge: September 05, 2020 Attending Provider at Admission: Kevin Jacobs MD Attending Provider at Discharge: Kevin Jacobs MD Primary Care Provider: Justin Naqvi DO Diagnoses at Discharge Discharge Diagnosis (1) Shortness of breath: Status: Acute (2) Pneumonia: Status: Acute Qualifiers: Laterality: right Lung location: upper lobe of lung Pneumonia type: due to unspecified organism Qualified Code(s): J18.9 - Pneumonia, unspecified organism (3) Hypertension: Status: Acute (4) DM2 (diabetes mellitus, type 2): Status: Acute Reason for Visit Reason for Visit: SOB, NAUSEA Hospital Course Hospital Course Arianna Rodriguez is a 80 year old female with past medical history of type 2 diabetes mellitus insulin-dependent, hypertension, diastolic heart failure, CVA who presented to the ER today. Patient was sent in by the nurse practitioner at [facility]. Patient states she has been having difficulty in breathing for last 3 days getting worse progressively. Today when she had gone to nurse practitioner for continuance of her insurance they found her to be having labored breathing so she was referred to the ER. Patient states she been having cough on and off for last 3 days with expectoration. Shortness of breath gets worse on ambulation. She denies of having any nausea, vomiting, dysuria, headache but complains of subjective fever fever. She has not had pneumonia in the past. She was vaccinated for COVID-19 in May. She did not have Covid infection since then. She denies of having any recent travels or sick contacts. Patient states she has been having uncontrolled diabetes with blood sugars ranging between 200-400 mostly in the 280s with some levels of 400. She states she takes a lot of insulin but still blood sugars are not controlled. Blood work in the ER showed a white count 22,000, hemoglobin of 11.8, sodium of 135, creatinine of 0.8, lactate of 1.3 with chest x-ray concerning for pneumonia and right upper lobe. She returned to the hospital for management of pneumonia. She started on broad-spectrum antibiotics. She responded well to the treatment. During hospitalization she was found to be mildly aspirating especially vomiting laying down in bed and having her meals. Modified barium swallow was done which showed esophageal dysmotility most likely from chronic reflux. Patient was advised in detail to make sure that she is sitting up while having her meals and at a setting of 45 minutes after having her meals to avoid aspiration. Both patient and her verbalized understanding. Her hospital stay remained unremarkable other than elevated blood pressures for which her antihypertensives were adjusted.During hospitalization on the CT scan she was also found to have possible obstruction of right upper lobe lobe bronchus which as per etiology is most likely because of advanced pneumonia though cancer cannot be ruled out for which patient is to follow-up with pulmonology as an outpatient for possible bronchoscopy in 2 weeks. She is been discharged hemodynamically stable condition advised to continue antibiotics for 7 more days to finish a 10-day course. She is to follow-up with her primary care provider within next 7 to 10 days. Physical Exam Narrative: EXAM NARRATIVE: General: No acute distress, AO x3, HEENT: PERRLA, pupils bilaterally equal and reactive Chest: Normal vesicular breath sounds, bronchial breath sounds in right upper lobe and middle lobe, diffuse rhonchi, equal good air entry bilaterally CVS: S1-S2 regular, no murmurs, no tachycardia, no gallops, no rubs Abdomen: Soft, nontender, no organomegaly, bowel sounds present Neuro: Residual weakness on the left side from old stroke, slurred speech from old stroke. Confirmed with patient and patient's at bedside. Discharge Data Data Completed and Pending: Completed Studies During Hospitalization Category Date Time Status CT chest wo con 7 1250 Urgent Cat Scan 09/01/20 18:08 Completed FL barium swallow modifd 16704 Rout ine Exams 09/03/20 08:40 Completed XR KUB portable 7 [id number] Urgent Exams 09/01/20 15:26 Completed XR chest 1V abdi ble [id number] Urgent Exams 09/01/20 15:23 Completed Pending at discharge Category Date Time Status Blood Culture Sta t Lab 09/01/20 15:56 Results Sputum Culture an d Gram Stain Stat Lab 09/02/20 12:28 Uncollected Vancomycin Trough Timed Lab 09/05/20 19:30 Ordered Labs from last 24 hours 09/05/20 09/05/20 09/05/20 10:23 09:45 09:45 WBC 14.6 H RBC 4.00 L Hgb 10.5 L Hct 34.7 L MCV 86.8 MCH 26.3 L MCHC 30.3 RDW 17.7 H Plt Count 388 MPV 10.4 Neut % (Auto) 73.9 Lymph % (Auto) 8.4 Nelson % (Auto) 11.9 Eos % (Auto) 1.2 Baso % (Auto) 0.7 Neut # (Auto) 10.77 H Lymph # (Auto) 1.2 Nelson # (Auto) 1.7 H Eos # (Auto) 0.2 Baso # (Auto) 0.1 Nucleated RBC % (a uto) 0 Nucleated RBCs # 0.0 Sodium 137 Potassium 4.3 Chloride 103 Carbon Dioxide 24 Anion Gap 14.3 BUN 19 Creatinine 0.7 GFR Calculation Not Reportable Glucose 205 H POC Glucose 223 H Calculated Osmolal ity 292 Calcium 8.7 Total Bilirubin 0.3 AST 48 H ALT 51 H Alkaline Phosphata se 94 Total Protein 6.4 L Albumin 2.8 L Globulin 3.6 09/05/20 09/05/20 09/04/20 07:05 06:22 20:24 WBC RBC Hgb Hct MCV MCH MCHC RDW Plt Count MPV Neut % (Auto) Lymph % (Auto) Nelson % (Auto) Eos % (Auto) Baso % (Auto) Neut # (Auto) Lymph # (Auto) Nelson # (Auto) Eos # (Auto) Baso # (Auto) Nucleated RBC % (a uto) Nucleated RBCs # Sodium Cancelled Potassium Cancelled Chloride Cancelled Carbon Dioxide Cancelled Anion Gap Cancelled BUN Cancelled Creatinine Cancelled GFR Calculation Cancelled Glucose Cancelled POC Glucose 117 H 290 H Calculated Osmolal ity Cancelled Calcium Cancelled Total Bilirubin Cancelled AST Cancelled ALT Cancelled Alkaline Phosphata se Cancelled Total Protein Cancelled Albumin Cancelled Globulin Cancelled 09/04/20 16:49 WBC RBC Hgb Hct MCV MCH MCHC RDW Plt Count MPV Neut % (Auto) Lymph % (Auto) Nelson % (Auto) Eos % (Auto) Baso % (Auto) Neut # (Auto) Lymph # (Auto) Nelson # (Auto) Eos # (Auto) Baso # (Auto) Nucleated RBC % (a uto) Nucleated RBCs # Sodium Potassium Chloride Carbon Dioxide Anion Gap BUN Creatinine GFR Calculation Glucose POC Glucose 194 H Calculated Osmolal ity Calcium Total Bilirubin AST ALT Alkaline Phosphata se Total Protein Albumin Globulin Addt'l Data from Hospital Stay: Laboratory Results WBC 14.6 10^3/uL (4.0 -10.0) H 09/05/20 09:45 RBC 4.00 10^6/uL (4.1 -5.3) L 09/05/20 09:45 Hgb 10.5 g/dL (11.5-1 5.3) L 09/05/20 09:45 Hct 34.7 % (37.0-47.0 ) L 09/05/20 09:45 MCV 86.8 fL (81-99) 09/05/20 09:45 MCH 26.3 pg (28.0-34. 0) L 09/05/20 09:45 MCHC 30.3 g/dL (30.0-3 6.0) 09/05/20 09:45 RDW 17.7 % (12.1-15.1 ) H 09/05/20 09:45 Plt Count 388 10^3/cmm (130 -400) 09/05/20 09:45 MPV 10.4 fL (7.4-10.4 ) 09/05/20 09:45 Neut % (Auto) 73.9 % 09/05/20 09:45 Lymph % (Auto) 8.4 % 09/05/20 09:45 Nelson % (Auto) 11.9 % 09/05/20 09:45 Eos % (Auto) 1.2 % 09/05/20 09:45 Baso % (Auto) 0.7 % 09/05/20 09:45 Neut # (Auto) 10.77 10^3/uL (1. 8-7.7) H 09/05/20 09:45 Lymph # (Auto) 1.2 10^3/uL (0.8- 4.8) 09/05/20 09:45 Nelson # (Auto) 1.7 10^3/uL (0.2- 0.9) H 09/05/20 09:45 Eos # (Auto) 0.2 10^3/uL (0.0- 0.8) 09/05/20 09:45 Baso # (Auto) 0.1 10^3/uL (0.0- 0.1) 09/05/20 09:45 Nucleated RBC % (a uto) 0 % 09/05/20 09:45 Nucleated RBCs # 0.0 /100WBC 04/25/21 09:45 PT 15.30 SECONDS (12 .1-14.9) H 09/02/20 06:45 INR 1.17 (0.8-1.2) 09/02/20 06:45 Sodium 137 mmol/L (136-1 45) 09/05/20 09:45 Potassium 4.3 mmol/L (3.5-5 .1) 09/05/20 09:45 Chloride 103 mmol/L (98-10 7) 09/05/20 09:45 Carbon Dioxide 24 mmol/L (22-29) 09/05/20 09:45 Anion Gap 14.3 (5-19) 09/05/20 09:45 BUN 19 mg/dL (8-23) 09/05/20 09:45 Creatinine 0.7 mg/dL (0.5-0. 9) 09/05/20 09:45 GFR Calculation Not Reportable 09/05/20 09:45 Glucose 205 mg/dL (65-115 ) H 09/05/20 09:45 POC Glucose 223 mg/dL (70-110 ) H 09/05/20 10:23 Estimat Average Gl ucose 148 09/02/20 05:59 Hemoglobin A1c 6.8 % (4.0-6.0) H 09/02/20 05:59 Calculated Osmolal ity 292 mOsm/kg (285- 295) 09/05/20 09:45 Lactic Acid 1.5 mmol/L (0.5-2 .2) 09/01/20 19:05 Calcium 8.7 mg/dL (8.5-10 .5) 09/05/20 09:45 Phosphorus 2.6 mg/dL (2.5-4. 5) 09/02/20 05:59 Magnesium 1.8 mg/dL (1.7-2. 3) 09/02/20 05:59 Iron 20 ug/dL (37-145) L 09/01/20 15:50 TIBC 313 mcg/dl 09/01/20 15:50 % Saturation 6.3 % (20-50) L 09/01/20 15:50 Unsat Iron Binding 293 ug/dL (112-34 7) 09/01/20 15:50 Total Bilirubin 0.3 mg/dL (0.15-1 .2) 09/05/20 09:45 AST 48 U/L (0-32) H 09/05/20 09:45 ALT 51 U/L (0-33) H 09/05/20 09:45 Alkaline Phosphata se 94 IU/L (35-105) 09/05/20 09:45 NT-Pro-B Natriuret Pep 333 pg/mL (0-450) 09/01/20 15:50 Total Protein 6.4 g/dL (6.6-8.7 ) L 09/05/20 09:45 Albumin 2.8 g/dL (3.5-5.2 ) L 09/05/20 09:45 Globulin 3.6 g/dL (1.3-4.6 ) 09/05/20 09:45 Triglycerides 43 mg/dL (0-150) 09/02/20 05:59 Cholesterol 85 mg/dL (0-200) 09/02/20 05:59 LDL Cholesterol, C alc 36 mg/dL (50-129) L 09/02/20 05:59 Total VLDL Cholest charlene 9 mg/dL (0-30) 09/02/20 05:59 HDL Cholesterol 40 mg/dL (60-100) L 09/02/20 05:59 Cholesterol/HDL Ra melvina 2.13 mg/dL (0.0-4 .40) 09/02/20 05:59 Procalcitonin 0.05 ng/mL (0-0.5 ) 09/02/20 05:59 TSH 0.93 uIU/mL (0.27 -4.20) 09/01/20 15:40 Urine Color Yellow (Yellow) 09/02/20 04:40 Urine Appearance Clear (CLEAR) 09/02/20 04:40 Urine pH 5 (5-7) 09/02/20 04:40 Ur Specific Gravit y 1.025 (1.005-1.0 30) 09/02/20 04:40 Urine Protein Neg (Negative) 09/02/20 04:40 Urine Glucose (UA) 2+ (Normal) 09/02/20 04:40 Urine Ketones Negative (Negati ve) 09/02/20 04:40 Urine Blood Neg (Negative) 09/02/20 04:40 Urine Nitrate Negative (Negati ve) 09/02/20 04:40 Urine Bilirubin Neg (Negative) 09/02/20 04:40 Urine Urobilinogen 1 mg/dL (Negative ) H 09/02/20 04:40 Ur Leukocyte Ailyn ase Negative (Negati ve) 09/02/20 04:40 Urine RBC Rare /hpf (0-2) 09/02/20 04:40 Urine WBC 0-4 /hpf (0-5) H 09/02/20 04:40 Ur Squamous Epith Cells 0-4 /hpf (0-5) H 09/02/20 04:40 Ur Transition Epit h Cell 0-4 /hpf 09/02/20 04:40 Amorphous Sediment 1+ /hpf 09/02/20 04:40 Urine Bacteria 1+ /hpf (NONE) H 09/02/20 04:40 Urine Mucus 1+ /hpf 09/02/20 04:40 Ur Random Sodium 75 mmol/L 09/02/20 04:40 Ur Random Potassiu m 49 mmol/L 09/02/20 04:40 Ur Random Chloride 69 mmol/L 09/02/20 04:40 Vancomycin Trough 9.0 ug/mL (10-15) L 09/04/20 07:00 Influenza Type A A g Negative (Negati ve) 09/01/20 20:10 Influenza Type B A g Negative (Negati ve) 09/01/20 20:10 Impressions Chest X-Ray 09/01/20 15:23 Impression: Minimal patchy right upper lobe opacity which could represent acute pneumonia. KUB X-Ray 09/01/20 15:26 Impression: Generalized ileus. Chest CT 09/01/20 18:08 IMPRESSION: 1. Right upper lobe bronchopneumonia. 2. Recommend radiographic follow-up to resolution as there is obstructing endobronchial material. Radiation Dose CTDIVOL = (mGy): DLP = 820.12 (mGy-cm) Modified Barium Swallow 09/03/20 08:40 Impression: 1. Premature spillage from the oral cavity. 2. Negative for aspiration or penetration. 3. Minimal residual in the vallecula and piriform sinuses which cleared with swallowing. Microbiology 09/02/20 18:45 Nose MRSA Culture - Final 09/01/20 15:56 Blood Blood Culture - Preliminary NEGATIVE TO DATE 09/01/20 19:05 Blood Blood Culture - Preliminary NEGATIVE TO DATE 09/02/20 04:40 Urine Catheterized Legionella Urinary Antigen - Final Vitals: Last Vital Signs Temp 98.7 F 09/05/20 10:59 Pulse 85 09/05/20 10:59 Resp 18 09/05/20 10:59 BP 163/69 09/05/20 10:59 Pulse Ox 94 09/05/20 10:59 Discharge Plan Discharge Patient Disposition: Home Health Service Condition: Stable Prescriptions: New lisinopril 20 mg Tablet 40 mg PO DAILY@0900 Qty: 30 RF: 0 Coreg 3.125 mg tablet 3.125 mg PO Q12H Qty: 60 RF: 0 doxycycline hyclate 100 mg capsule 100 mg PO BID 7 Days Qty: 14 RF: 0 levofloxacin 500 mg tablet 500 mg PO DAILY 7 Days Qty: 7 RF: 0 Continued acetaminophen 325 mg capsule 650 mg PO Q6H PRN (Reason: Pain) RF: 0 omega-3 fatty acids 1,000 mg capsule 1,000 mg PO DAILY@0900 RF: 0 fluoxetine 40 mg capsule 40 mg PO DAILY@0900 RF: 0 glucosamine HCl 1,500 mg tablet 750 mg PO DAILY@0900 RF: 0 multivitamin [Daily Multi-Vitamin] Tablet 1 tab PO DAILY@0900 RF: 0 Aspir-81 81 mg Tablet,Delayed Release (Dr/Ec) 81 mg PO DAILY@0900 RF: 0 atorvastatin 40 mg tablet 40 mg PO DAILY@2200 RF: 0 isosorbide mononitrate 30 mg tablet extended release 24 hr 30 mg PO DAILY@0900 RF: 0 Humalog KwikPen Insulin 100 unit/mL insulin pen 35 unit SUBCUT TID@ RF: 0 bupropion HCl 150 mg tablet extended release 24 hr 150 mg PO DAILY@0900 RF: 0 Tresiba FlexTouch U-200 200 unit/mL (3 mL) insulin pen 120 unit SUBCUT BEDTIME@2200 RF: 0 Vitamin D3 1 tab PO DAILY@0900 RF: 0 zinc 1 tab PO DAILY@0900 RF: 0 [facility] 1 tab PO DAILY@0900 RF: 0 Discontinued metoprolol tartrate 25 mg Tablet 12.5 mg PO BID@0800,1999 RF: 0 benazepril 10 mg tablet 20 mg PO DAILY@0900 RF: 0 Discharge Orders: Discharge Order (Routine); Ordered 09/05/20 Ordered By: Kevin Jacobs Referrals: Magui Cordero MD [Physician] - 2 weeks (admitted for pneumonia, found to have obstructing material in the right upper lobe bronchus most likely because of severe pneumonia but cannot rule out cancer) Justin Naqvi DO [Primary Care Provider] - 7-10 days Discharge Diet: Usual diet Discharge Activity: Resume usual activity Patient Instructions: Opioid Safety Activity Restrictions/Additional Instructions: Your blood pressure medication has been changed to lisinopril and Coreg. Please take doxycycline levofloxacin for 7 more days to finish the course of antibiotics. Please make sure you are sitting up while having your food and continue to sit up for at least 45 minutes after your meals to avoid any aspiration I have discussed in detail. Discharge Attestations Time Spent in Discharge Care*: greater than 30 min Specific Discharge Activities: educating patient, educating and/or supporting family/caregiver, discussing with pcp/other providers, discussing with lining caser/social workers/dc planners, documenting/other paperwork and evaluating patient/reviewing data Status at Discharge: Cognitive status at discharge: mildly impaired cognition, Behavioral status at discharge: cooperative, Functional status at discharge: other assisted ambulation Overall status at discharge: patient is back to baseline Quality Metrics Clinical Quality Measures During this hospital stay, did patient experience: None Coding Level of Care Code Acute Chg FW DC note Diagnoses Shortness of breath R06.02 Pneumonia J18.9 Laterality: right Lung location: upper lobe of lung Pneumonia type: due to unspecified organism Hypertension I10 DM2 (diabetes mellitus, type 2) E11.9
== END 2020-09-05 15:56 | disposition home health service (06) | DRG 194 ==
LOC: ER 17:24 → MEDSURG 18:09
PROVIDERS: Admitting Provider Student in an Organized Health Care Education/Training Program; Emergency Provider Student in an Organized Health Care Education/Training Program; PCP Internal Medicine; Visit Provider Student in an Organized Health Care Education/Training Program
DX: J18.9 Pneumonia, unspecified organism (principal); I50.30 Unspecified diastolic (congestive) heart failure; Z68.41 Body mass index [BMI] 40.0-44.9, adult; I69.354 Hemiplegia and hemiparesis following cerebral infarction affecting left non-dominant side; E11.65 Type 2 diabetes mellitus with hyperglycemia; I11.0 Hypertensive heart disease with heart failure; E66.9 Obesity, unspecified; Z79.4 Long term (current) use of insulin; Z87.891 Personal history of nicotine dependence; Z79.82 Long term (current) use of aspirin; I69.328 Other speech and language deficits following cerebral infarction; F32.9 Major depressive disorder, single episode, unspecified; Z66 Do not resuscitate
CPT/HCPCS: 36415; 36416; 51702; 71045; 71250; 74018; 74230; 80053; 80061; 80202; 81001; 82436; 82962; 83036; 83540; 83550; 83605; 83735; 83880; 84100; 84133; 84145; 84300; 84443; 85025; 85610; 87040; 87449; 87641; 87804; 92611; 94640; 94664; 96365; 96367; 96372; 99285; J0692; J0696; J1650; J1756; J1815 ×2; J3370; J3490; J7040; J7626; Q0144

== ENCOUNTER 2020-09-09 16:39 | Emergency (ER) | payer MEDICARE, BC, SELFPAY ==
[2020-09-09] VITALS (8 sets, daily range): BP systolic 178; BP diastolic 98; PULSE 71–97; RESP 17–19; O2SAT 93–99; BMI 35.7
--- NOTE | 2020-09-09 16:41 | XRR_ITS ---
PROCEDURE INFORMATION: Exam: XR Chest Exam date and time: 09/09/2020 5:11 PM Age: 80 years old Clinical indication: Shortness of breath; Additional info: Reduced breath sounds TECHNIQUE: Imaging protocol: XR of the chest. Views: 1 view. COMPARISON: 1. CT chest wo con [id number] 09/01/2020 7:00 PM 2. CR XR chest 1V portable [id number] 09/01/2020 3:32:14 PM FINDINGS: Limitations: Patient is rotated towards the left. Lungs: Visualized portions of the left lung remain clear. There is no change in the right upper lobe infiltrate. There is question of some increasing density in the right lower lobe which may represent additional infiltrate. Follow-up suggested. Pleural spaces: Unremarkable. No pleural effusion. No pneumothorax. Heart/Mediastinum: Heart is within normal limits of size. Bones/joints: Unremarkable. XR/XR chest 1V portable [id number] IMPRESSION: 1. No change in right upper lobe pneumonia. 2. Question of developing right lower lobe infiltrate
--- NOTE | 2020-09-09 16:44 | ECG_ITS ---
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 Measurements Intervals [place] Rate: 70 P: 20 FL: 164 QRS: 53 QRSD: 94 T: 50 QT: 442 QTc: 478 Interpretive Statements SINUS RHYTHM NONSPECIFIC T-WAVE ABNORMALITY Compared to ECG 11/19/2019 15:58:20 T-wave abnormality now present Myocardial infarct finding no longer present Electronically Signed On 09-10-2020 7:17:02 CDT by Roxana Boone M.D. [email or web address]
[2020-09-09 16:52] LABS: Glucose Point of Care 55 mg/dL (70-110)
[2020-09-09 17:06] LABS: Basophils # 0.1 10^3/uL (0.0-0.1); Basophils % 0.6 %; Eosinophils # 0.1 10^3/uL (0.0-0.8); Eosinophils % 0.9 %; Hematocrit 38.8 % (37.0-47.0); Hemoglobin 11.9 g/dL (11.5-15.3); Lymphocytes # 2.3 10^3/uL (0.8-4.8); Lymphocytes % 17.9 %; Mean Corpuscular HGB Conc 30.7 g/dL (30.0-36.0); Mean Corpuscular Hemoglobin 26.4 pg (28.0-34.0); Mean Corpuscular Volume 86.2 fL (81-99); Monocytes # 1.2 10^3/uL (0.2-0.9); Monocytes % 8.8 %; Neutrophils # 8.82 10^3/uL (1.8-7.7); Neutrophils % 67.7 %; Nucleated Red Blood Cells % 0 %; Platelet Count 402 10^3/cmm (130-400); Red Cell Distribution Width 18.6 % (12.1-15.1)
[2020-09-09 17:34] LABS: Alanine Aminotransferase 60 U/L (0-33); Albumin Level 3.3 g/dL (3.5-5.2); Alkaline Phosphatase 89 IU/L (35-105); Anion Gap 12.5 (5-19); Aspartate Amino Transferase 41 U/L (0-32); Blood Urea Nitrogen 15 mg/dL (8-23); Calcium 8.2 mg/dL (8.5-10.5); Carbon Dioxide 27 mmol/L (22-29); Chloride 105 mmol/L (98-107); Glucose 48 mg/dL (65-115); NT Pro B Type Natriuretic Pept 251 pg/mL (0-450); Osmolality Calculated 290 mOsm/kg (285-295); Potassium 3.5 mmol/L (3.5-5.1); Sodium 141 mmol/L (136-145); Total Bilirubin 0.2 mg/dL (0.15-1.2); Total Protein 6.3 g/dL (6.6-8.7); Troponin(5th) Baseline 15 ng/L (0-10)
[2020-09-09 17:35] LABS: Glucose Point of Care 65 mg/dL (70-110)
[2020-09-09] MEDS: dextrose 50% syringe 50 mL IVP (17:47)
--- NOTE | 2020-09-09 17:55 | PC.PHAR ---
PT UNABLE TO VERIFY MEDICATIONS-PTS VERIFIED MEDICATIONS- pts states sometimes they dont check blood sugar before giving the 35 UNITS OF HUMALOG KWIKPEN 100U/ML insulin pts states sometimes uses sliding scale-rx filled as 35 units tid on 09/08/20-PT STATES HE IS UNSURE IF THE PT WAS STILL TAKING METOPROLOL TARTRATE 25MG 12.5MG BID THIS MEDICATION SHOWS DCED ON DISCHARGE PAPERS ON 09/05/20 -MAIL ORDER PHARMACY FILLED ON 09/06/20-
[2020-09-09 18:21] LABS: Glucose Point of Care 116 mg/dL (70-110)
--- NOTE | 2020-09-09 18:44 | ECG_ITS ---
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 Measurements Intervals [place] Rate: 78 P: 55 MD: 167 QRS: 56 QRSD: 78 T: 51 QT: 386 QTc: 440 Interpretive Statements SINUS RHYTHM NONSPECIFIC T-WAVE ABNORMALITY Compared to ECG 09/09/2020 17:05:23 No significant changes Electronically Signed On 09-10-2020 7:27:31 CDT by Roxana Boone M.D. [id number]
[2020-09-09 19:39] LABS: Troponin 5 2HR 14.82 ng/L (0-10)
[2020-09-09 19:40] LABS: Troponin 5 2HR Delta -0.18 ABS# (0-10)
[2020-09-09 19:55] LABS: Add Urine Microscopic? YES; Bacteria Urine TRACE /hpf; Bilirubin Urine Neg (Negative); Blood Urine Neg (Negative); Glucose Urine UA 1+ (Normal); Ketones Urine Negative (Negative); Leukocyte Esterase Urine Negative (Negative); Mucus Urine 2+ /hpf; Nitrate Urine Negative (Negative); Protein Urine Neg (Negative); RBC Urine 0-4 /hpf (0-2); Specific Gravity, Urine 1.025 (1.005-1.030); Squamous Epithelial Cell Urine 15-25 /hpf (0-5); Urine Appearance Hazy (CLEAR); Urine Color Yellow (Yellow); Urobilinogen Urine Norm (Negative); WBC Urine 0-4 /hpf (0-5); pH Urine 5 (5-7)
[2020-09-09 21:20] LABS: Glucose Point of Care 242 mg/dL (70-110)
[2020-09-09] MEDS: ipratropium-albuterol 3 mL Neb INHALATION (22:04)
--- NOTE | 2020-09-09 22:31 | ED_ITS ---
HPI - Recheck/Abnormal Lab/Rx General: Chief Complaint: Recheck/Abnormal Lab/Rx Stated Complaint: LOW BLOOD SUGAR Time Seen by Provider: 09/09/20 16:40 History of Present Illness: HPI narrative: The patient is a 80-year-old female with past medical history type 2 diabetes and recent stroke who comes to the ER via EMS. They were called because of decreased responsiveness. Initial blood glucose was 33. She was given D10 and it went up to 104 and dropped to 55 on arrival. On arrival she is thinking clearly and speaking clearly alert and oriented x4. She says she thinks she took too much insulin and did not have a great meal before. She was recently admitted for a multitude of things among which was pneumonia and is currently taking doxycycline and levofloxacin for this. She has been breathing fine at home but does have some wheezing on exam. She has chronic right facial droop and right hand weakness and mild right leg weakness from her previous stroke but is able to get around generally. Her family members admit she is at her baseline mental status and baseline facial droop and weakness. Review of Systems General: Reports: 10 or more systems reviewed and unremarkable except in HPI and below Const: Reports: fatigue Eyes: Denies: change in vision, blurry vision or eye redness ENMT: Denies: throat pain, swelling of lips/tongue, ear or mastoid pain or nasal congestion Card: Denies: chest pain, palpitations, irregular heart rhythm, edema, dyspnea on exertion or orthopnea Resp: Denies: dyspnea, productive cough or non-productive cough GI: Denies: abdominal pain, diarrhea or GI cramping : Denies: flank pain, difficulty voiding, urinary frequency or urinary urgency Musc: Denies: neck pain, back pain, extremity pain, joint pain, joint redness, limited range of motion or muscle weakness Skin/Breast: Denies: rash, pruritus, erythema, skin pain or skin tenderness Neuro: Denies: headache(s), numbness in extremities, weakness in extremities, sensory changes, difficulty walking, dizziness, confusion or Slurred speech present Psych: Denies: anxiety or depression Endo: Denies: polyuria All/Imm: Denies: urticaria, throat swelling or tongue swelling PFS ED PFSH: Medical History (Updated 09/09/20 @ 22:30 by Valdo Quintero MD) Carotid artery dissection Follow-up with neurology. Consideration of MRI and MRA on follow-up. Chronic back pain CVA (cerebral vascular accident) Doing well. Discharged on aspirin, statin to long-term facility for therapy. Depression Diastolic CHF DM2 (diabetes mellitus, type 2) Hypertension Obesity Osteoarthritis (arthritis due to wear and tear of joints) Short of breath on exertion Tachyarrhythmia Surgical History History of cataract surgery History of cholecystectomy History of tonsillectomy Family History Other Diabetes Social History Smoking and tobacco status: former smoker Alcohol intake: never History of recent travel: No Physical Exam Const: COMMON NORMALS: no acute distress, average body habitus, patient oriented x3, no limitations, healthy appearing, alert and well nourished GENERAL APPEARANCE: cooperative, comfortable, well kempt and well developed ORIENTATION/CONSCIOUSNESS: Yes awake, Yes oriented to person, Yes oriented to place and Yes oriented to time HENMT: COMMON NORMALS: normocephalic, external ears normal and Normal external nose present HEAD & SCALP: normal to inspection and normocephalic NOSE: Normal external nose present EXTERNAL EAR: Yes external ears normal MOUTH: Normal oral and palatal mucosa present THROAT: posterior oropharynx normal Eye: COMMON NORMALS: Equal, round and reactive pupils present and EOMs intact bilaterally GENERAL EYE: appearance normal, both eyes and all related structures PUPIL: Yes Equal, round and reactive pupils present Neck/C-Spine: COMMON NORMALS: full ROM, no lymphadenopathy, no meningeal signs and no JVD GENERAL: Yes normal visual inspection Lymph: LYMPHATIC: no lymphadenopathy noted Chest: COMMONS NORMALS: normal inspection of the chest and normal palpation of entire chest wall Resp: COMMON NORMALS: normal respiratory effort, No retractions, No use of accessory muscles and percussion normal EFFORT & INSPECTION: Yes able to speak in complete sentences AUSCULTATION: wheezes PERCUSSION: percussion normal OTHER: mild lower lung field wheezes expiratory bilaterally. Cardio: COMMON NORMALS: no JVD, regular rate, regular rhythm, S1 normal heart sound present, S2 normal heart sound present and Peripheral pulses 2+ throughout RATE: regular rate RHYTHM: regular rhythm HEART SOUNDS: S1 normal heart sound present and S2 normal heart sound present PERIPHERAL PULSES: Peripheral pulses 2+ throughout GI: COMMON NORMALS: Normal to inspection, nondistended, normoactive bowel sounds present, Soft to palpation, non-tender and no masses INSPECTION: Yes normal to inspection PALPATION: Yes Soft to palpation : COMMON NORMALS: Yes no CVA tenderness BLADDER/KIDNEY EXAM: Yes no CVA tenderness Back/Pelvis: COMMON NORMALS: no CVA tenderness, thoracic and lumbar spine normal to inspection, no thoracic nor lumbar tenderness and thoraco-lumbar ROM normal Extremity: COMMON NORMALS: normal to inspection, full ROM, capillary refill normal, no joint enlargement and no pedal edema GENERAL: Yes normal exam except as noted Neuro: COMMON NORMALS: patient oriented x3, CN's II-XII intact bilaterally, moves all extremities, no sensory deficits noted and gait normal SENSORIUM/ORIENTATION: Yes alert, Yes oriented to person, Yes oriented to place and Yes oriented to time MENINGEAL SIGNS: Yes no meningeal signs OTHER: She has chronic right facial droop and mild right hand weakness as well as mild right leg weakness. These are chronic and unchanged and she is at her baseline. She is not confused and she is speaking clearly. Psych: COMMON NORMALS: mental status grossly normal, Normal thought process present, cooperative, normal affect and speech normal APPEARANCE: Yes well kempt ATTITUDE: Yes calm SPEECH: Yes normal speech THOUGHT PROCESS: Normal thought process present Skin: COMMON NORMALS: no rashes or lesions noted GENERAL SKIN EXAM: no rashes or lesions noted Course Vital Signs: Vital signs: Vital Signs Pulse Rate 97 09/09/20 22:28 Respiratory Rate 18 09/09/20 22:28 Pulse Oximetry 96 09/09/20 22:28 MDM - Recheck/Abnormal Lab/Rx MDM Narrative: Medical decision making narrative: The patient came to the ER for an episode of hypoglycemia which mostly was resolved prior to arrival with the administration of glucose. She thinks she gives herself too much insulin and this may be correct. She was given another bolus of glucose and a D50 syringe and her sugar normalized she was given food and glucose was in the 200s. She was stable for discharge from that point. She did complain of mild wheezing and was giving a breathing treatment and improved back to her baseline. She has oxygen at home and she is taking levofloxacin and doxycycline already from her recent admission for pneumonia. I will discharge her with an extension of 7 days of both of those antibiotics and add albuterol inhaler for her at home to help with shortness of breath. Chest x-ray does show potential slight worsening of the pneumonia which is why we'll extend the antibiotics as they were only given for a week. She will return to the ER with any worsening symptoms or shortness of breath. Lab Data: Labs: Lab Results 09/09/20 09/09/20 09/09/20 Range/Units 16:48 16:54 16:54 WBC 13.0 H (4.0-10.0) 10^3/ uL RBC 4.50 (4.1-5.3) 10^6/u L Hgb 11.9 (11.5-15.3) g/dL Hct 38.8 (37.0-47.0) % MCV 86.2 (81-99) fL MCH 26.4 L (28.0-34.0) pg MCHC 30.7 (30.0-36.0) g/dL RDW 18.6 H (12.1-15.1) % Plt Count 402 H (130-400) 10^3/c mm MPV 10.0 (7.4-10.4) fL Neut % (Auto) 67.7 % Lymph % (Auto) 17.9 % [place] % (Auto) 8.8 % Eos % (Auto) 0.9 % Baso % (Auto) 0.6 % Neut # (Auto) 8.82 H (1.8-7.7) 10^3/u L Lymph # (Auto) 2.3 (0.8-4.8) 10^3/u L [place] # (Auto) 1.2 H (0.2-0.9) 10^3/u L Eos # (Auto) 0.1 (0.0-0.8) 10^3/u L Baso # (Auto) 0.1 (0.0-0.1) 10^3/u L Nucleated RBC % (a uto) 0 % Nucleated RBCs # 0.0 /100WBC Sodium 141 (136-145) mmol/L Potassium 3.5 (3.5-5.1) mmol/L Chloride 105 (98-107) mmol/L Carbon Dioxide 27 (22-29) mmol/L Anion Gap 12.5 (5-19) BUN 15 (8-23) mg/dL Creatinine 0.6 (0.5-0.9) mg/dL GFR Calculation Not Reportable Glucose 48 L (65-115) mg/dL POC Glucose 55 L (70-110) mg/dL Calculated Osmolal ity 290 (285-295) mOsm/k g Lactate (0.5-2.2) mmol/L Calcium 8.2 L (8.5-10.5) mg/dL Total Bilirubin 0.2 (0.15-1.2) mg/dL AST 41 H (0-32) U/L ALT 60 H (0-33) U/L Alkaline Phosphata se 89 (35-105) IU/L Troponin T Baselin e (0-10) ng/L Troponin T 120 Min [place] (0-10) ng/L Delta Troponin T (0-10) ABS# NT-Pro-B Natriuret Pep 251 (0-450) pg/mL Total Protein 6.3 L (6.6-8.7) g/dL Albumin 3.3 L (3.5-5.2) g/dL Globulin 3.0 (1.3-4.6) g/dL Urine Color (Yellow) Urine Appearance (CLEAR) Urine pH (5-7) Ur Specific Gravit y (1.005-1.030) Urine Protein (Negative) Urine Glucose (UA) (Normal) Urine Ketones (Negative) Urine Blood (Negative) Urine Nitrate (Negative) Urine Bilirubin (Negative) Urine Urobilinogen (Negative) mg/dL Ur Leukocyte Ailyn ase (Negative) Urine RBC (0-2) /hpf Urine WBC (0-5) /hpf Ur Squamous Epith Cells (0-5) /hpf Amorphous Sediment Urine Bacteria (NONE) /hpf Urine Mucus /hpf 09/09/20 09/09/20 09/09/20 Range/Units 16:54 16:54 17:32 WBC (4.0-10.0) 10^3/ uL RBC (4.1-5.3) 10^6/u L Hgb (11.5-15.3) g/dL Hct (37.0-47.0) % MCV (81-99) fL MCH (28.0-34.0) pg MCHC (30.0-36.0) g/dL RDW (12.1-15.1) % Plt Count (130-400) 10^3/c mm MPV (7.4-10.4) fL Neut % (Auto) % Lymph % (Auto) % [place] % (Auto) % Eos % (Auto) % Baso % (Auto) % Neut # (Auto) (1.8-7.7) 10^3/u L Lymph # (Auto) (0.8-4.8) 10^3/u L [place] # (Auto) (0.2-0.9) 10^3/u L Eos # (Auto) (0.0-0.8) 10^3/u L Baso # (Auto) (0.0-0.1) 10^3/u L Nucleated RBC % (a uto) % Nucleated RBCs # /100WBC Sodium (136-145) mmol/L Potassium (3.5-5.1) mmol/L Chloride (98-107) mmol/L Carbon Dioxide (22-29) mmol/L Anion Gap (5-19) BUN (8-23) mg/dL Creatinine (0.5-0.9) mg/dL GFR Calculation Glucose (65-115) mg/dL POC Glucose 65 L (70-110) mg/dL Calculated Osmolal ity (285-295) mOsm/k g Lactate 1.0 (0.5-2.2) mmol/L Calcium (8.5-10.5) mg/dL Total Bilirubin (0.15-1.2) mg/dL AST (0-32) U/L ALT (0-33) U/L Alkaline Phosphata se (35-105) IU/L Troponin T Baselin e 15 H (0-10) ng/L Troponin T 120 Min [place] (0-10) ng/L Delta Troponin T (0-10) ABS# NT-Pro-B Natriuret Pep (0-450) pg/mL Total Protein (6.6-8.7) g/dL Albumin (3.5-5.2) g/dL Globulin (1.3-4.6) g/dL Urine Color (Yellow) Urine Appearance (CLEAR) Urine pH (5-7) Ur Specific Gravit y (1.005-1.030) Urine Protein (Negative) Urine Glucose (UA) (Normal) Urine Ketones (Negative) Urine Blood (Negative) Urine Nitrate (Negative) Urine Bilirubin (Negative) Urine Urobilinogen (Negative) mg/dL Ur Leukocyte Ailyn ase (Negative) Urine RBC (0-2) /hpf Urine WBC (0-5) /hpf Ur Squamous Epith Cells (0-5) /hpf Amorphous Sediment Urine Bacteria (NONE) /hpf Urine Mucus /hpf 09/09/20 09/09/20 09/09/20 Range/Units 18:16 18:50 19:41 WBC (4.0-10.0) 10^3/ uL RBC (4.1-5.3) 10^6/u L Hgb (11.5-15.3) g/dL Hct (37.0-47.0) % MCV (81-99) fL MCH (28.0-34.0) pg MCHC (30.0-36.0) g/dL RDW (12.1-15.1) % Plt Count (130-400) 10^3/c mm MPV (7.4-10.4) fL Neut % (Auto) % Lymph % (Auto) % [place] % (Auto) % Eos % (Auto) % Baso % (Auto) % Neut # (Auto) (1.8-7.7) 10^3/u L Lymph # (Auto) (0.8-4.8) 10^3/u L [place] # (Auto) (0.2-0.9) 10^3/u L Eos # (Auto) (0.0-0.8) 10^3/u L Baso # (Auto) (0.0-0.1) 10^3/u L Nucleated RBC % (a uto) % Nucleated RBCs # /100WBC Sodium (136-145) mmol/L Potassium (3.5-5.1) mmol/L Chloride (98-107) mmol/L Carbon Dioxide (22-29) mmol/L Anion Gap (5-19) BUN (8-23) mg/dL Creatinine (0.5-0.9) mg/dL GFR Calculation Glucose (65-115) mg/dL POC Glucose 116 H (70-110) mg/dL Calculated Osmolal ity (285-295) mOsm/k g Lactate (0.5-2.2) mmol/L Calcium (8.5-10.5) mg/dL Total Bilirubin (0.15-1.2) mg/dL AST (0-32) U/L ALT (0-33) U/L Alkaline Phosphata se (35-105) IU/L Troponin T Baselin e (0-10) ng/L Troponin T 120 Min [place] 14.82 H (0-10) ng/L Delta Troponin T -0.18 L (0-10) ABS# NT-Pro-B Natriuret Pep (0-450) pg/mL Total Protein (6.6-8.7) g/dL Albumin (3.5-5.2) g/dL Globulin (1.3-4.6) g/dL Urine Color Yellow (Yellow) Urine Appearance Hazy A (CLEAR) Urine pH 5 (5-7) Ur Specific Gravit y 1.025 (1.005-1.030) Urine Protein Neg (Negative) Urine Glucose (UA) 1+ (Normal) Urine Ketones Negative (Negative) Urine Blood Neg (Negative) Urine Nitrate Negative (Negative) Urine Bilirubin Neg (Negative) Urine Urobilinogen Norm (Negative) mg/dL Ur Leukocyte Ailyn ase Negative (Negative) Urine RBC 0-4 H (0-2) /hpf Urine WBC 0-4 H (0-5) /hpf Ur Squamous Epith Cells 15-25 H (0-5) /hpf Amorphous Sediment Not Reportable Urine Bacteria Trace (NONE) /hpf Urine Mucus 2+ /hpf 09/09/20 Range/Units 21:13 WBC (4.0-10.0) 10^3/ uL RBC (4.1-5.3) 10^6/u L Hgb (11.5-15.3) g/dL Hct (37.0-47.0) % MCV (81-99) fL MCH (28.0-34.0) pg MCHC (30.0-36.0) g/dL RDW (12.1-15.1) % Plt Count (130-400) 10^3/c mm MPV (7.4-10.4) fL Neut % (Auto) % Lymph % (Auto) % [place] % (Auto) % Eos % (Auto) % Baso % (Auto) % Neut # (Auto) (1.8-7.7) 10^3/u L Lymph # (Auto) (0.8-4.8) 10^3/u L [place] # (Auto) (0.2-0.9) 10^3/u L Eos # (Auto) (0.0-0.8) 10^3/u L Baso # (Auto) (0.0-0.1) 10^3/u L Nucleated RBC % (a uto) % Nucleated RBCs # /100WBC Sodium (136-145) mmol/L Potassium (3.5-5.1) mmol/L Chloride (98-107) mmol/L Carbon Dioxide (22-29) mmol/L Anion Gap (5-19) BUN (8-23) mg/dL Creatinine (0.5-0.9) mg/dL GFR Calculation Glucose (65-115) mg/dL POC Glucose 242 H (70-110) mg/dL Calculated Osmolal ity (285-295) mOsm/k g Lactate (0.5-2.2) mmol/L Calcium (8.5-10.5) mg/dL Total Bilirubin (0.15-1.2) mg/dL AST (0-32) U/L ALT (0-33) U/L Alkaline Phosphata se (35-105) IU/L Troponin T Baselin e (0-10) ng/L Troponin T 120 Min [place] (0-10) ng/L Delta Troponin T (0-10) ABS# NT-Pro-B Natriuret Pep (0-450) pg/mL Total Protein (6.6-8.7) g/dL Albumin (3.5-5.2) g/dL Globulin (1.3-4.6) g/dL Urine Color (Yellow) Urine Appearance (CLEAR) Urine pH (5-7) Ur Specific Gravit y (1.005-1.030) Urine Protein (Negative) Urine Glucose (UA) (Normal) Urine Ketones (Negative) Urine Blood (Negative) Urine Nitrate (Negative) Urine Bilirubin (Negative) Urine Urobilinogen (Negative) mg/dL Ur Leukocyte Ailyn ase (Negative) Urine RBC (0-2) /hpf Urine WBC (0-5) /hpf Ur Squamous Epith Cells (0-5) /hpf Amorphous Sediment Urine Bacteria (NONE) /hpf Urine Mucus /hpf Discharge Plan Discharge Patient Disposition: Home Clinical Impression: Hypoglycemia, Pneumonia Condition: Stable Prescriptions: New levofloxacin 500 mg tablet 500 mg PO DAILY 7 Days RF: 0 doxycycline hyclate 100 mg capsule 100 mg PO BID 7 Days Qty: 14 RF: 0 albuterol sulfate 90 mcg/actuation HFA aerosol inhaler 2 inh inhalation Q4H PRN (Reason: shortness of breath or wheezing) Qty: 8.5 RF: 0 No Action omega-3 fatty acids 1,000 mg capsule 1,000 mg PO PRN RF: 0 fluoxetine 40 mg capsule 40 mg PO QAM RF: 0 Tylenol Extra Strength 500 mg Tablet 1,000 mg PO BEDTIME RF: 0 lisinopril 20 mg tablet 40 mg PO DAILY RF: 0 aspirin 81 mg Tablet,Delayed Release (Dr/Ec) 81 mg PO QAM RF: 0 atorvastatin 40 mg tablet 40 mg PO BEDTIME RF: 0 isosorbide mononitrate 30 mg tablet extended release 24 hr 30 mg PO DAILY RF: 0 insulin lispro [Humalog KwikPen Insulin] 100 unit/mL insulin pen See Rx Instructions .ROUTE .COMPLEX RF: 0 bupropion HCl 150 mg tablet extended release 24 hr 150 mg PO QAM RF: 0 Tresiba FlexTouch U-200 200 unit/mL (3 mL) insulin pen 120 unit SUBCUT BEDTIME RF: 0 Vitamin D3 1 tab PO QAM RF: 0 zinc 1 tab PO QAM RF: 0 [facility] 1 tab PO QPM RF: 0 carvedilol [Coreg] 3.125 mg tablet 3.125 mg PO Q12H Qty: 60 RF: 0 doxycycline hyclate 100 mg capsule 100 mg PO BID 7 Days Qty: 14 RF: 0 levofloxacin 500 mg tablet 500 mg PO DAILY 7 Days Qty: 7 RF: 0 Discharge Orders: Discharge ED (Routine); Ordered 09/09/20 Ordered By: Valdo Quintero Referrals: Justin Naqvi DO [Primary Care Provider] - Discharge Diet: Advance as tolerated Discharge Activity: Resume usual activity Patient Instructions: Hypoglycemia, Bacterial Pneumonia (ED), Opioid Safety Activity Restrictions/Additional Instructions: You have had an episode of hypoglycemia today possibly from giving himself too much insulin. Please be careful to give yourself the correct dose and keep a snack handy just in case your glucose gets low. Also you continue to have pneumonia in your lungs and I have given you a prescription for doxycycline and levofloxacin to be added to the end of the current prescription you are taking. When you finish the first 7-day prescription you may start the prescription I given you today for the second 7 days.. Also I have given you a prescription for an albuterol inhaler to help if you get short of breath. Return to the ER at anytime with worsening symptoms Coding Level of Care Code ED Clay Puddler for Mayank Bentley
--- NOTE | 2020-09-14 10:56 | DCPLANNER ---
appointment manager had message to get a follow up appointment for patient with primary care, Dr. Naqvi, spoke with patients , he stated that patient followed up with primary care on 09.13.20, already had that appointment scheduled.
== END 2020-09-09 23:25 | disposition home or self-care (01) ==
PROVIDERS: Emergency Provider Family Medicine; PCP Internal Medicine
DX: E11.649 Type 2 diabetes mellitus with hypoglycemia without coma (principal); J18.9 Pneumonia, unspecified organism; Z79.82 Long term (current) use of aspirin; Z79.4 Long term (current) use of insulin; Z86.73 Personal history of transient ischemic attack (TIA), and cerebral infarction without residual deficits; I11.0 Hypertensive heart disease with heart failure; I50.30 Unspecified diastolic (congestive) heart failure; Z87.891 Personal history of nicotine dependence
CPT/HCPCS: 36415; 36416; 71045; 80053; 81001; 82962; 83605; 83880; 84484; 85025; 93005; 94640; 96374; 99284

== ENCOUNTER 2020-09-29 10:02 | Outpatient (CLI) | payer MEDICARE, BC, SELFPAY ==
--- NOTE | 2020-09-29 10:15 | CT_ITS ---
WS: [id number] CT CHEST WITHOUT INTRAVENOUS CONTRAST HISTORY: Right upper lobe endobronchial occlusion TECHNIQUE: Contiguous 5 mm axial imaging performed on the thorax. Coronal and sagittal reformats are submitted. All CT scans at [facility] use at least one of these dose optimization techniq ues: automated exposure control; mA and/or kV adjustment per patient size (includes targeted exams wh ere dose is matched to clinical indication); or iterative reconstruction. CONTRAST: None DLP: 663.76 mGycm COMPARISON: 09/01/2020 Lungs and central airway: Persistent consolidation and airspace disease in the RIGHT upper lobe but i mproved since 09/01/2020. Persistent consolidation extends along the superior fissure with mild tree-i n-bud airspace disease and reticulations. Complete obstruction with increased soft tissue in the RIGH T upper lobe bronchus has nearly resolved. Focal area of near occlusion in the proximal RIGHT upper l obe bronchus. There is still mild thickening of the bronchial buenrostro. Minimal tree-in-bud airspace dis ease in the posterior RIGHT lower lobe has improved. Pleura: Normal. No pleural effusion. Heart and pericardium: Normal size heart with no pericardial effusion. Mediastinum and andreina: No mediastinum or hilar adenopathy. Vessels: Mild atherosclerosis aorta. Chest wall and lower neck: No soft tissue masses. Upper abdomen: Small hiatal hernia. Prior cholecystectomy. Mild thickening of the LEFT adrenal gland. Osseous structures: T12 compression fracture is 20% unchanged since 09/01/2020. CT/CT chest wo con [id number] IMPRESSION: 1. Significant improvement in the obstructive pneumonia RIGHT upper lobe. Near complete resolution of the endobronchial obstruction. There is focal area of s oft tissue partial obstruction in the proximal RIGHT upper lobe bronchus. 2. Minimal persistent tree-in-bud airspace disease in the posterior RIGHT lowe r lobe. 3. Stable mild thickening of the LEFT adrenal limbs. 4. Unchanged 20% T12 compression fracture.
== END 2020-09-29 10:03 | disposition home or self-care (01) ==
PROVIDERS: PCP Internal Medicine; Visit Provider Internal Medicine Critical Care Medicine
DX: J98.4 Other disorders of lung (principal); S22.088A Other fracture of T11-T12 vertebra, initial encounter for closed fracture; X58.XXXA Exposure to other specified factors, initial encounter; J18.8 Other pneumonia, unspecified organism
CPT/HCPCS: 71250